=== PATIENT | male | born 1970 | race Caucasian/White ===

== ENCOUNTER → 2017-11-10 | Outpatient (CLI) | payer BC ==
--- NOTE | 2017-11-10 10:44 | XR ---
EXAMINATION TYPE: XR chest 2V DATE OF EXAM: 11/10/2017 COMPARISON: NONE INDICATION: Chest pain right lower rib pain TECHNIQUE: Frontal and lateral views of the chest are obtained. FINDINGS: The heart size is normal. The pulmonary vasculature is normal. The lungs are clear. No pneumothorax is evident. IMPRESSION: 1. No acute pulmonary process.
--- NOTE | 2017-11-10 10:46 | XR ---
EXAMINATION TYPE: XR ribs RT DATE OF EXAM: 11/10/2017 COMPARISON: NONE HISTORY: Pleural dyspnea right lower rib pain felt pop this morning TECHNIQUE: Right ribs are examined in 2 projections. FINDINGS: There is a very subtle nondisplaced fracture of the anterior right eighth rib end. No pneum othorax is evident. No pneumoperitoneum is evident. No additional fractures are evident. IMPRESSION: 1. Nondisplaced anterior right eighth rib fracture
== END | disposition home or self-care (01) ==
LOC: RADXRMAIN 10:09
PROVIDERS: ATTEND Internal Medicine
DX: S22.31XA Fracture of one rib, right side, initial encounter for closed fracture (principal); R07.89 Other chest pain
CPT/HCPCS: 71046

== ENCOUNTER 2020-01-07 19:46 | Emergency (ER) | payer BC, MEDICAID ==
[2020-01-07 19:53] VITALS: BP 125/89; PULSE 79; RESP 20; TEMP 98
[2020-01-07 20:21] LABS: Basophils % (A) 1 %; Eosinophils # (A) 0.2 k/uL (0-0.7); Eosinophils % (A) 4 %; HCT 43.4 % (39.0-53.0); HGB 15.3 gm/dL (13.0-17.5); Lymphocytes % (A) 28 %; MCH 29.6 pg (25.0-35.0); MCHC 35.4 g/dL (31.0-37.0); MCV 83.6 fL (80.0-100.0); Mean Platelet Volume 7.5; Monocytes # (A) 0.3 k/uL (0-1.0); Monocytes % (A) 5 %; Neutrophils # (A) 4.3 k/uL (1.3-7.7); Neutrophils % (A) 61 %; Platelet Count 267 k/uL (150-450); RBC 5.19 m/uL (4.30-5.90); RDW 12.6 % (11.5-15.5)
[2020-01-07] MEDS ORDERED: MAG HYDROX/AL HYDROX/SIMETH 30 ML, HYOSCYAMINE ELIXIR 10 ML, LIDOCAINE VISCOUS 2% 10 ML PO STA ×3 (20:23)
--- NOTE | 2020-01-07 20:28 | ED ---
General Adult HPI - General Chief complaint: Chest Pain Stated complaint: Chest Pain Time Seen by Provider: 01/07/20 20:00 Source: patient Mode of arrival: ambulatory Limitations: no limitations - History of Present Illness Initial comments: Dictation was produced using [employer] dictation software. please excuse any grammatical, word or spelling errors. This patient was cared for during a federal and state declared state of emergency secondary to Covid 19 Chief Complaint: 49-year-old old male presents with chest pain. History of Present Illness: 49-year-old male he has no past medical history. He states he has chest pain that spent on and off for the last 2 days. He also complains of mild headache. Patient states his symptoms have been ongoing for the last 2 days. States that there is no exacerbating or mitigating factors. States that the pain is sharp initially and now it is currently dull. No radiation to the back. Patient presents with pain was initially severe however is a lot more relenting today. Patient denies any medical history of himself. He states that his parents have coronary artery disease. Patient denies any radiation to the shoulders or jaw. No associated diaphoresis. Not worse with lying flat. The ROS documented in this emergency department record has been reviewed and confirmed by me. Those systems with pertinent positive or negative responses have been documented in the HPI. All other systems are other negative and/or noncontributory. PHYSICAL EXAM: General Impression: Alert and oriented x3, not in acute distress HEENT: Normocephalic atraumatic, extra-ocular movements intact, pupils equal and reactive to light bilaterally, mucous membranes moist. Cardiovascular: Heart regular rate and rhythm, S1&S2 audible, no murmurs, rubs or gallops Chest: Able to complete full sentences, no retractions, no tachypnea Abdomen: Bowel sounds present, abdomen soft, non-tender, non-distended, no organomegaly Musculoskeletal: Pulses present and equal in all extremities, no peripheral chidi ma Motor: no focal deficits noted Neurological: CN II-XII grossly intact, no focal motor or sensory deficits noted Skin: Intact with no visualized rashes Psych: Normal affect and mood ED course: 49-year-old male presents with chief complaint of chest pain. All signs upon arrival are within acceptable limits. Patient's symptoms are atypical with typical features. Laboratory evaluation obtained. CBC and a marble. Metabolic panel is negative. Troponins negative. Prematurity peptide is negative. D-dimer is 0.95. Chest x-ray shows no acute processes. CT angios shows no acute processes. No pulmonary embolus elevated d-dimer. Discussed with patient that complete workup with include to use sets of troponins by at least 3 hours. Patient states he does not want to wait. He understands that he has not had a complete workup for his chest pain. He lives nearby and can return to the emergency department if he starts to experience more symptoms. Patient given an aspirin. Patient will be discharged. Patient advised to follow-up with his primary care physician. He is told to return to the [facility] department if he has any recurrence of symptoms. Patient understandable agreeable with disposition. EKG interpretation: Ventricular rate 75, normal sinus rhythm,. Interval 150, QRS 106, QTC 426. No MN prolongation, no QTC prolongation, no ST or T-wave changes noted. No old EKG for comparison. Overall, this EKG is unremarkable - Related Data Home Medications Medication Instructions Recorded Confirmed No Known Home Medications 01/07/20 01/07/20 Allergies Allergy/AdvReac Type Severity Reaction Status Date / Time No Known Allergies Allergy Verified 01/07/20 21:36 Review of Systems ROS Statement: Those systems with pertinent positive or pertinent negative responses have been documented in the HPI. ROS Other: All systems not noted in ROS Statement are negative. Past Medical History Past Medical History: No Reported History History of Any Multi-Drug Resistant Organisms: None Reported Past Surgical History: Orthopedic Surgery Additional Past Surgical History / Comment(s): lt knee Past Psychological History: No Psychological Hx Reported Smoking Status: Never smoker Past Alcohol Use History: None Reported Past Drug Use History: Marijuana General Exam Limitations: no limitations Course Vital Signs 01/07/20 19:50 Temperature 98.0 F Pulse Rate 79 Respiratory 20 Rate Blood Pressure 125/89 O2 Sat by Pulse 99 Oximetry Medical Decision Making - Lab Data Result diagrams: 01/07/20 20:08 01/07/20 20:08 Lab Results 01/07/20 01/07/20 01/07/20 Range/Units 20:08 20:08 20:08 WBC 7.0 (3.8-10.6) k/uL RBC 5.19 (4.30-5.90) m/uL Hgb 15.3 (13.0-17.5) gm/dL Hct 43.4 (39.0-53.0) % MCV 83.6 (80.0-100.0) fL MCH 29.6 (25.0-35.0) pg MCHC 35.4 (31.0-37.0) g/dL RDW 12.6 (11.5-15.5) % Plt Count 267 (150-450) k/uL Neutrophils % 61 % Lymphocytes % 28 % Monocytes % 5 % Eosinophils % 4 % Basophils % 1 % Neutrophils # 4.3 (1.3-7.7) k/uL Lymphocytes # 2.0 (1.0-4.8) k/uL Monocytes # 0.3 (0-1.0) k/uL Eosinophils # 0.2 (0-0.7) k/uL Basophils # 0.0 (0-0.2) k/uL D-Dimer (<0.60) mg/L FEU Sodium 139 (137-145) mmol/L Potassium 3.5 (3.5-5.1) mmol/L Chloride 107 (98-107) mmol/L Carbon Dioxide 24 (22-30) mmol/L Anion Gap 8 mmol/L BUN 16 (9-20) mg/dL Creatinine 1.14 (0.66-1.25) mg/dL Est GFR (CKD-EPI)AfAm 86 (>60 ml/min/1.73 sqM) Est GFR (CKD-EPI)NonAf 75 (>60 ml/min/1.73 sqM) Glucose 119 H (74-99) mg/dL Calcium 9.5 (8.4-10.2) mg/dL Troponin I <0.012 (0.000-0.034) ng/mL NT-Pro-B Natriuret Pep pg/mL 01/07/20 01/07/20 Range/Units 20:08 20:08 WBC (3.8-10.6) k/uL RBC (4.30-5.90) m/uL Hgb (13.0-17.5) gm/dL Hct (39.0-53.0) % MCV (80.0-100.0) fL MCH (25.0-35.0) pg MCHC (31.0-37.0) g/dL RDW (11.5-15.5) % Plt Count (150-450) k/uL Neutrophils % % Lymphocytes % % Monocytes % % Eosinophils % % Basophils % % Neutrophils # (1.3-7.7) k/uL Lymphocytes # (1.0-4.8) k/uL Monocytes # (0-1.0) k/uL Eosinophils # (0-0.7) k/uL Basophils # (0-0.2) k/uL D-Dimer 0.95 H (<0.60) mg/L FEU Sodium (137-145) mmol/L Potassium (3.5-5.1) mmol/L Chloride (98-107) mmol/L Carbon Dioxide (22-30) mmol/L Anion Gap mmol/L BUN (9-20) mg/dL Creatinine (0.66-1.25) mg/dL Est GFR (CKD-EPI)AfAm (>60 ml/min/1.73 sqM) Est GFR (CKD-EPI)NonAf (>60 ml/min/1.73 sqM) Glucose (74-99) mg/dL Calcium (8.4-10.2) mg/dL Troponin I (0.000-0.034) ng/mL NT-Pro-B Natriuret Pep 35 pg/mL Disposition Clinical Impression: Chest pain Disposition: HOME SELF-CARE Condition: Good Instructions (If sedation given, give patient instructions): Chest Pain (ED) Is patient prescribed a controlled substance at d/c from ED?: No Referrals: Ruby Turner MD [Primary Care Provider] - 1-2 days Time of Disposition: 21:42
[2020-01-07 20:37] LABS: Calcium 9.5 mg/dL (8.4-10.2); Potassium 3.5 mmol/L (3.5-5.1)
--- NOTE | 2020-01-07 20:39 | XR ---
EXAMINATION TYPE: XR chest 1V portable DATE OF EXAM: 01/07/2020 COMPARISON: Chest x-ray November 10, 2017 HISTORY: Chest pain. TECHNIQUE: Single frontal view of the chest is obtained. FINDINGS: There is chronic parenchymal change without suspicious new focal air space opacity, pleura l effusion, or pneumothorax seen. The cardiac silhouette size remains within normal limits. Degenera tive change both shoulders redemonstrated. Overlying EKG leads are seen. IMPRESSION: Chronic changes without acute pulmonary process.
--- NOTE | 2020-01-07 21:15 | CT ---
EXAMINATION TYPE: CT angio chest DATE OF EXAM: 01/07/2020 COMPARISON: Chest x-ray earlier today. HISTORY: SOB, CHEST PAIN, ELEVATED D-DIMER CT DLP: 588.4 mGycm. Automated Exposure Control for Dose Reduction was Utilized. CONTRAST: CTA scan of the thorax is performed with IV Contrast, patient injected with 100 mL of Isovue 300, pul monary embolism protocol. MIP Images are created on CT scanner and reviewed. FINDINGS: LUNGS: Slightly suboptimal as there is respiratory motion artifact aggravation limiting evaluation fo r subcentimeter nodules. Lungs are grossly clear. Note is made of a 5 mm left basilar nodule axial im age 89. Appropriate follow-up advised as per Fleischner Society recommendations. No pleural effusion or pneumothorax. Mild patchy linear scarring and/or atelectasis left lung base. MEDIASTINUM: There is satisfactory enhancement of the pulmonary artery and its branches, there is no CT evidence for pulmonary embolism. There are no greater than 1 cm mediastinal lymph nodes. Slightly prominent left hilar lymph nodes. No cardiomegaly or pericardial effusion is seen. Incidental [employer] enhancement of the thoracic aorta without greater than 4.0 cm aneurysm or dissection. OTHER: Straightening of spine with moderate multilevel anterior spurring mid thoracic levels. IMPRESSION: No CT evidence for acute pulmonary embolism. No suspicious acute pulmonary process.
[2020-01-07] MEDS ORDERED: ASPIRIN 81 MG PO STA (21:41)
== END 2020-01-07 22:12 | disposition home or self-care (01) ==
LOC: SUPCPDRO 19:46 → EC 19:46
DX: R07.9 Chest pain, unspecified (principal); R51 Headache; Z82.49 Family history of ischemic heart disease and other diseases of the circulatory system
CPT/HCPCS: 36415; 93005; 85379; 83880; 80048; 84484; 85025; 71045; 71275; 99285; Q9967

== ENCOUNTER → 2020-03-31 | Outpatient (CLI) | payer MEDICAID ==
--- NOTE | 2020-03-31 13:11 | MR ---
EXAMINATION TYPE: MR cervical spine wo con DATE OF EXAM: 03/31/2020 COMPARISON: None HISTORY: 49-year-old male M54.2, Cervicalgia TECHNIQUE: Multiplanar, multisequence images of the cervical spine were acquired. FINDINGS: The craniocervical junction abnormality, predental space widening, or prevertebral soft tissue swelli ng. Some degenerative changes are present at the C1 dens articulation. There is slight dextroconvex curvature of the cervical spine with accelerated degenerative disc disea se towards the left particularly at C3-C4 with fatty Modic type II endplate changes. Additional scattered Modic type II fatty endplate change particularly at C5-C6 and C6-C7. Facet and uncovertebral joint arthropathy throughout. Degenerative grade 1 anterolisthesis at C4-C5. Moderate degenerative disc disease C5-C7 levels with desiccated discs. Disc space narrowing is presen t. Disc osteophyte complex formation at various levels. At C2-C3, minimal bulging disc. Bilateral facet arthropathy. Mild left neuroforaminal narrowing. No s lyssa canal stenosis. At C3-C4, minimal posterior disc bulge. Hypertrophic facet and uncovertebral joint arthropathy on the left with severe left neuroforaminal stenosis. No spinal canal stenosis. At C4-C5, hypertrophic facet and uncovertebral joint arthropathy. Moderate right and mild left neurof oraminal stenosis. Grade 1 anterolisthesis. No spinal canal stenosis. At C5-C6, hypertrophic facet and uncovertebral joint arthropathy, left greater than right. Moderate t o severe left and moderate right neuroforaminal stenosis. There is some ventral impression on the the mary jane sac without significant spinal canal stenosis. At C6-C7, broad-based discussed by complex with uncovertebral joint and facet arthropathy. Moderate l eft and mild right neuroforaminal narrowing. No spinal canal stenosis. At C7-T1, hypertrophic facet arthropathy. Uncovertebral joint arthropathy on the left. Mild bilateral neuroforaminal narrowing. There is ventral impression on the thecal sac without significant spinal c anal stenosis. Normal course, caliber, and signal intensity of the cervical spinal cord. No prevertebral or paravertebral soft tissue abnormality. IMPRESSION: 1. Moderate degenerative disc disease. Scattered fatty Modic type II endplate change. 2. Hypertrophic facet and uncovertebral joint arthropathy throughout. Degenerative grade 1 anterolist hesis at C4-C5. There is also slight dextroconvex curvature of the cervical spine that could reflect a slight underlying scoliosis. Clinically correlate. 3. Small disc osteophyte complexes impress on the ventral thecal sac at multiple levels but do not co ntribute to any significant spinal canal stenosis. 4. Variable neural foraminal stenoses, severe on the left at C3-C4, moderate to severe on the left a t C5-C6, and moderate on the left at C6-C7. Level by level changes as above.
== END | disposition home or self-care (01) ==
LOC: RADMRIMAIN 11:32
PROVIDERS: ATTEND Physical Medicine & Rehabilitation
DX: M50.31 Other cervical disc degeneration, high cervical region (principal); M48.02 Spinal stenosis, cervical region; M25.78 Osteophyte, vertebrae; M47.812 Spondylosis without myelopathy or radiculopathy, cervical region; I10 Essential (primary) hypertension
CPT/HCPCS: 72141

== ENCOUNTER → 2020-08-20 | Outpatient (CLI) | payer MEDICAID | END | disposition home or self-care (01) | LOC: LABWHC1 15:20 | PROVIDERS: ATTEND Family Medicine | DX: R05 Cough (principal); R11.10 Vomiting, unspecified; R51.9 Headache, unspecified | CPT/HCPCS: U0003; C9803 ==

== ENCOUNTER → 2020-09-09 | Outpatient (CLI) | payer MEDICAID ==
--- NOTE | 2020-09-09 16:18 | CT ---
EXAMINATION TYPE: CT cervical spine wo con DATE OF EXAM: 09/09/2020 COMPARISON: Outside cervical spine x-ray September 01, 2020. MRI cervical spine March 31, 2020. HISTORY: Neck pain x1 year. CT DLP: 618.9 mGycm Automated exposure control for dose reduction was used. TECHNIQUE: CT scan of the cervical spine is obtained without contrast, axial images are obtained, sa gittal and coronal reformatted images are also reviewed. FINDINGS: Cervical spine is redemonstrated in its entirety from C1 through upper thoracic levels, per sistent dextroconvex scoliosis on coronal images centered mid cervical spine with reactive levoconvex scoliosis centered upper thoracic spine without evidence of acute fracture or dislocation. Sagittal images redemonstrate slight grade 1 retrolisthesis C3 on C4 and grade 1 anterolisthesis of C4 on C5. Prevertebral soft tissue appears within normal limits. The C1-C2 articulation remains within normal limits on the coronal images. Vertebral body heights are maintained. Moderate disc space narrowing C 6-C7 level remains present. Mild disc space narrowing with moderate anterior spurring C5-C6 level. Sp inal canal grossly preserved. No new large disc herniations are present. Axial images show left-sided uncovertebral facet degenerative changes C3-C4 level contributing to mo derate left-sided neural foraminal narrowing and bilateral uncovertebral facet degenerative changes C 4-C5 level along with 2 greater degree C5-C6 level causing [id number] bilateral neural foramina l narrowing. Lung apices show no pneumothorax. IMPRESSION: As above. No significant change from recent MRI study.
== END | disposition home or self-care (01) ==
LOC: RADCTMAIN 15:50
PROVIDERS: ATTEND Orthopaedic Surgery
DX: M48.02 Spinal stenosis, cervical region (principal); M50.20 Other cervical disc displacement, unspecified cervical region; M43.12 Spondylolisthesis, cervical region; M47.812 Spondylosis without myelopathy or radiculopathy, cervical region
CPT/HCPCS: 72125

== ENCOUNTER → 2020-10-29 | Outpatient (CLI) | payer MEDICAID | END | disposition home or self-care (01) | LOC: LABWHC1 11:03 | PROVIDERS: ATTEND Orthopaedic Surgery | DX: Z01.812 Encounter for preprocedural laboratory examination (principal); M47.812 Spondylosis without myelopathy or radiculopathy, cervical region; Z22.322 Carrier or suspected carrier of Methicillin resistant Staphylococcus aureus | CPT/HCPCS: 87070 ==

== ENCOUNTER 2020-11-04 05:41 | Inpatient (IN) | payer MEDICAID ==
[2020-10-28 14:58] VITALS: BMI 26.3
--- NOTE | 2020-10-29 12:06 | P.HPOR ---
History of Present Illness H&P Date: 10/29/20 Chief Complaint: Neck pain, Arm pain, radiculopathy Patient presents with neck pain. He notes pain for years. He has left sided pain that is more symptomatic than his right side. He had previous injections and ablations ( 6months ago) without relief. He currently does physical therapy without relief. He notes radiating pain down his back and between his shoulder blades. Patient notes limited range of motion and pain at night time. Patient ambulates independently . He does not take pain medications. He tried meloxicam without relief. he previously was seen by Dr. Feng who stated similarly that the patient needs either a large anterior fusion or an anterior posterior cervical fusion but he is very young. Patient returns for a follow up of his cervical spine CT scan results. Patient notes left sided pain has increased and radiates between his shoulder blades. Patient notes night time symptoms. He has limited range of motion. Patient states that he is unable to do normal activity such as watching television without significant pain. He does not take pain medications. Review of Systems 14 points review of systems completed and as stated in HPI, all other systems reviewed are negative. Past Medical History Past Medical History: Osteoarthritis (OA) Additional Past Medical History / Comment(s): DDD History of Any Multi-Drug Resistant Organisms: None Reported Past Surgical History: Orthopedic Surgery Additional Past Surgical History / Comment(s): lt knee. colonoscopy Past Anesthesia/Blood Transfusion Reactions: Postoperative Nausea & Vomiting (PONV) Smoking Status: Never smoker - Past Family History Mother Family Medical History: No Reported History Medications and Allergies Home Medications Medication Instructions Recorded Confirmed Type No Known Home Medications 01/07/20 10/28/20 History Allergies Allergy/AdvReac Type Severity Reaction Status Date / Time No Known Allergies Allergy Verified 10/28/20 14:45 Physical Examination Osteopathic Statement: *. No significant issues noted on an osteopathic structural exam other than those noted in the History and Physical/Consult. PHYSICAL EXAMINATION: Vitals: Stable General: Awake, alert, appropriate for age, in no acute distress. HEENT: No unusual neck masses around region of lateral neck triangle, thyroid, supraclavicular groove. Heart: Regular rate and rhythm, normal S1, S2 and no murmur/gallop. Lungs: Clear to auscultation bilaterally with no use of accessory muscles. Extremities: Skin warm and dry without no acute lesions, coloration, temperature, skin intact, no tenderness or erythema. Integument: Hairy patches: Absent Dorsal skin dimples: Absent Cafe au lait spots: Absent Surgical incisions: None Palpation: Please see Pain drawing on Intake sheet for further detail. (Tenderness = T, Nontender = NT, Swelling = S, Ecchymosis = E) Findings on Midline and paraspinal palpation and percussion: Cervical: Tennis to palpation posteriorly midline as well as paraspinal within the cervical spine Thoracic: NT Lumbar: NT Sacral: NT Special findings: Done POSTURAL and MUSCULO-SKELETAL EVALUATION: Coronal Balance: Neutral Recumbent testing: Patient can lay flat on back Sagittal Balance: Neutral Shoulder Profile: Level Pelvic Girdle: Level Neck ROM: Unrestricted in six directions Lumbar ROM: Unrestricted in six directions Shoulder ROM: Symmetric in abduction, ER/IR Hip ROM: Symmetric in abduction, adduction, ER/IR Knee ROM: Symmetric and intact in Flexion / extension Hands: Normal appearing structure L and R Feet: Normal appearing structure L and R VASCULAR STATUS : Wrist Pulses: 2/4 bilateral radial and ulnar Pedal Pulses: 2/4 bilateral DP and PT Color: Normal Edema: None NEUROLOGIC EXAMINATION: Mental Status: Awake and alert, fully oriented, with normal attention, concentration and memory, and fluent, appropriate speech. Cranial Nerves: I: Olfactory not tested. II: Visual acuity normal, no visual field deficit noted with confrontation. III,IV: Normal pupillary reflexes & intact extraocular movements without nystagmus. V,: Intact symmetrical facial sensation. VII: Intact symmetrical facial motor movement VIII: Hearing intact. IX,X: Intact gag, swallow, & normal voice. XI: Sternocleidomastoid, trapezius function intact. XII: Tongue midline with normal movements. Special Tests: L'hermitte's Sign: Absent Spurling'Sign: Absent Bilateral Cubital percussion test: Absent Bilateral Reuben-Tinel sign - Carpal region: Absent Bilateral Straight Leg Raising: Absent Bilateral Motor Exam (0-5/5, N/T) STRENGTH UPPER EXTREMITY Shoulder Abd (Not part of ODILIA Motor score): RIGHT 5 LEFT 5 Elbow Flexors: RIGHT 5 LEFT 5 Elbow Extensor: RIGHT 5 LEFT 5 Wrrist Dorsiflexors: RIGHT 5 LEFT 5 Finger Abductor: RIGHT 5 LEFT 5 Surveillance Manager: RIGHT 5 LEFT 5 LOWER EXTREMITY Hip Flexor (Not part of ODILIA Motor Score): RIGHT 5 LEFT 5 Knee Flexor: RIGHT 5 LEFT 5 Knee Extensor: RIGHT 5 LEFT 5 Ankle Dorsiflexion: RIGHT 5 LEFT 5 Ankle Plantarflexion: RIGHT 5 LEFT 5 EHL: RIGHT 5 LEFT 5 FHL: RIGHT 5 LEFT 5 ODILIA Motor Score: RIGHT 50/50 LEFT 50/50 REFLEXES Biecp: RIGHT 2 LEFT 2 Tricep: RIGHT 2 LEFT 2 Brachioradialis: RIGHT 2 LEFT 2 Patellar: RIGHT 2 LEFT 2 Achilles: RIGHT 2 LEFT 2 Pathological Reflexes Araiza's: RIGHT Absent LEFT Absent Babinski: RIGHT Absent LEFT Absent Clonus: RIGHT None LEFT None SENSORY Joint Position: Intact bilaterally Vibration Intact bilaterally Pain and LT sense Intact C5-T1 and L2-S1 Dermatomal deficit None Gait and Functional Evaluation: Ambulatory aids: Independent walker Romberg's test: Intact bilaterally. Toe walk/ heel walk / heel-toe walk intact while maintaining satisfactory balance. Squatting and straightening out without assistance to a minimum of 60 degrees knee flexion Single leg stance: Intact/ Trendelenburg sign negative bilaterally Hand and finger dexterity intact bilaterally. Disdiadochokinesis examination negative bilaterally. Results AP lateral flexion extension radiographs of the cervical spine obtained and reviewed these films demonstrate any fracture dislocation overall alignment is fairly well maintained there is slight kyphotic collapse at the C5 6 level and the C4 5 level. There is foraminal stenosis noted at the C3 to C5 levels. There is a grade 1 anterolisthesis of C4 on C5 with flexion which does reduce on extension. There is spondylosis throughout the cervical spine. There is facet arthrosis as well. Foraminal views failed to demonstrate any other areas of lesion. There is no bony lesions noted. MRI of the cervical spine is reviewed from an outside source. This demonstrates C4 5 grade 1 spondylolisthesis C3 to C4 foraminal stenosis on the left. There is spondylosis throughout. There are no fractures or dislocations noted. CT scan shows cervical spondylosis C3-7 with Grade I spondylolisthesis of C4-5. There is stenosis related as well as foraminal stenosis. There are large anterior osteophytes noted. There are no fractures noted. Assessment and Plan Assessment: 1. Severe cervical spondylosis 2. Grade 1 C4-C5 anterior spondylolisthesis Plan: Spine Surgery Risk Review Fantasma Borges is a 50-year-old male presenting for evaluation of severe cervical neck pain as well as bilateral upper extremity radiculopathy. It was my pleasure to have seen and examined Fantasma Borges. In our visit today we have had a chance to go over subjective complaints, physical examination findings and treatments including the natural course history without intervention and various interventional options. The patients imaging demonstrates severe cervical spondylosis with a grade 1 anterolisthesis of C4 on C5 with foraminal and central stenosis related.. On physical exam, Fantasma Borges demonstrates bilateral upper extremity radiculopathy, severe cervical neck pain and limited range of motion. I have explained to the patient that as their condition progresses it will cause further neurological deficits and eventual paralysis. Based on the patients imaging, physical exam, and the rapid progression and disabling nature of their symptoms, at this time I recommend surgery in the form or a: cervical 3 to cervical 7 ACDF. I discussed the risk and benefits of this procedure at length with Fantasma Borges. The patient agreed to considered pursuing the procedure abovementioned. Prior to surgery, she should follow up with her PCP (Cardio, ID, IM etc) for clearance. Questions were invited and answered, and the patient wishes to proceed as outlined below. Currently, I am recommendin.cervical 3 to cervical 7 anterior cervical discectomy and fusion with possible posterior cervical 2 to thoracic to decompression and fusion 2.Follow up with PCP for surgical clearance 3.Review of surgical risks and benefits as well as an educational packet on the proposed surgical procedure. Risks: All surgical procedures come with inherent risks, including those related to positioning, anesthesia, intraoperative findings, and postoperative complications. It is important to understand that surgery does not come with any guarantee of a successful outcome as complications and adverse events are always possible. The patient was given a handout in office today discussing the surgical procedure and risks associated with the intervention, both of which were discussed with the patient. These risks include but are not limited to the following: * Experiencing same, different or even worse symptoms in back, neck, arms, or legs compared to before surgery. Requiring further surgery or other forms of treatment presently or at some time in the future at same or other levels of the intended spine surgery. On an extreme but fortunately relatively rare basis severe complication such as blindness, stroke, heart attack, temporary and/or permanent nerve injury, paralysis, coma, or may occur, sometimes without known explanation. Surgical complications may include but are not limited to risk of infec tion, fluid accumulation in the surgical dissection site, including a seroma or hematoma, that requires additional surgery, wound drainage, bleeding, new numbness or weakness, vision changes/loss, spinal fluid leakage, non-healing and/or infected incision, headaches, difficulty or inability to swallow, hoarseness, hemopneumothorax, pneumothorax, impotence, retrograde ejaculation, vaginal dryness; injury to nerves, spinal cord, blood vessels, lymphatics or other vital organs (i.e., bowel injury, injury to the great vessels); heterotopic bone formation; complications related to the hardware such as screws, rods, cages including misplaced hardware, device failure, instrumentation at the wrong spine level, hardware fracture/breakage, or hardware loosening; vertebral failure of the spinal column above or below the newly placed hardware; retained surgical instrumentations or devices and the need for further surgery. * Medical risks of the planned spine surgery include but are not limited to generalized Infections to the whole body or local areas outside of the surgical site (sepsis), heart attack, bleeding, anaphylaxis, meningitis, seizure, epilepsy, hearing loss, burn alejandro, laceration of the head or other areas of the body, bruising, hypersensitivity of the skin, bladder over distension; allergic reaction; shoulder injury related to positioning; fat, blood and air clots to other areas of the body like heart, lungs, brain; failure of internal organs such as lungs, kidneys, liver and excessive bleeding. If blood transfusions are necessary, note that transfusions may cause intolerance reactions such as anaphylaxis or other complex reactions. Despite best efforts, the results of spine surgery might not heal in terms of bone, soft tissues such as skin, fascia, ligaments, and joints. Additionally, in order to achieve best possible results, spine surgery may be carried out beyond the initially planned levels and involve decompression, fusion including insertion of hardware at levels other than the original intended area of surgical interest change some portions of the procedure in order to ensure the best possible outcomes. With spine surgery and spinal fusion, there are different off label uses of instrumentation (devices, implants and hardware) as well as biological substances (bone morphogenic proteins, demineralized bone matrix) as well as using extra bone from allograft sources (i.e. cadaver bone) or autograft (iliac crest bone, ribs, or the spine itself). The patient has been given information about these practices and their inherent risks and benefits. [facility] is an educational center that serves as a training facility for neurosurgical and orthopedic spine residents and fellows. Residents are physicians who are completing their surgical intensive training following medical school. They assist in the operating room with direct supervision of the attending surgeons. [place] are surgeons who have completed their training and eligible for board certification. They have opted for an elective year of more specialized training in their field. They assist in the operating room under the supervision of the attending surgeons. Physician assistants are medically trained surgical providers who function in the outpatient, inpatient, and operating room setting under the direct supervision of the attending surgeon. [facility] has multiple operating rooms with single and overlapping rooms running daily. They currently function under the required guidelines as produced by the [facility] [employer] Committee with regards to the overlapping rooms and will continue to comply with changes to this policy as they occur. The requirements include and are complied with as follows: (1) the critical portions of the overlapping rooms will not occur at the same time, (2) the attending physician will be physically present during the critical portions of the procedure and immediately available during the entire case, and (3) a back-up attending is designated should the primary attending not be immediately available. The patient has had a chance to review all the listed information, has been given print outs detailing this information, and has had all his/her questions answered to their satisfaction. It was my pleasure to have seen and examinedFantasma Borges. In our visit today we have had a chance to go over my understanding of our patient's current condition, the natural course history without intervention and various interventional options. Questions were invited and answered, and the patient wishes to proceed as outlined above. I have seen and examined the patient for 25 minutes and we have spent more than 50% of the time in repeat and detailed counseling about the patient's condition, its natural course history with out and as much as can be predicted with surgery and re-review of various surgical treatment options. In conclusion, Fantasma Borges and requested we proceed with the above suggested surgery and are willing to accept risks and limitations of the suggested surgery as nature of the disease process and our best attempts at treatment for the condition. Thank you again for allowing us to be part of your patient's care. Please don't hesitate to contact me if you have any further questions. Signed and authenticated by: [facility] [address] [place] [address]
[~2020-11-04 05:41] MED LIST: ACETAMINOPHEN TAB 500 MG TAB PO PRN; DEXAMETHASONE SOD PHOSPHATE 4 MG/ML 1 ML VIAL IV ONE; GABAPENTIN 300 MG CAP PO PRN; ONDANSETRON 4 MG/2 ML VIAL IVP ONE; ONDANSETRON 4 MG/2 ML VIAL IVP PRN; TRANEXAMIC ACID 1,000 MG in SODIUM CHLORIDE 0.9% 100 ML IVPB PRN
[2020-11-04] MEDS ORDERED: LIDOCAINE 1% (10MG/ML) FOR IV START INTRADERMA ONE (06:30)
[2020-11-04] MEDS: LACTATED RINGERS 1,000 ML IV SCH (06:30)
[2020-11-04] MEDS ORDERED: HYDROmorphone 0.5 MG/0.5 ML SYRINGE IVP PRN (07:00)
[2020-11-04] MEDS ORDERED: LIDOCAINE 1% INJ 10MG/ML (20 ML MDV) ONE (07:25)
[2020-11-04] MEDS ORDERED: KETAMINE 10 MG/ML 20 ML VIAL ONE (07:25)
[2020-11-04] MEDS ORDERED: WATER FOR INJECTION, STERILE 10 ML VIAL IV ONE (07:25)
[2020-11-04] MEDS ORDERED: fentaNYL (PF) 50 MCG/ML 2 ML AMP ONE (07:25)
[2020-11-04] MEDS ORDERED: ePHEDrine SULFATE/0.9% NACL/PF 50 MG/5 ML SYRINGE IV ONE (07:25)
[2020-11-04] MEDS ORDERED: MIDAZOLAM 2 MG/2 ML VIAL ONE (07:25)
[2020-11-04] MEDS ORDERED: SUCCINYLCHOLINE CHLORIDE 100 MG/5 ML SYR IV ONE (07:25)
[2020-11-04] MEDS ORDERED: PROPOFOL 10 MG/ML 20 ML VIAL IV ONE ×2 (07:25)
[2020-11-04] MEDS ORDERED: THROMBIN (BOVINE) 5,000 UNIT VIAL TOPICAL ONE (08:00)
[2020-11-04] MEDS ORDERED: BUPIVACAINE (PF) 0.5% 30 ML VIAL SQ ONE ×3 (08:32→09:22)
[2020-11-04] MEDS ORDERED: LACTATED RINGERS 1,000 ML IV ONE (08:51)
[2020-11-04] MEDS ORDERED: GELATIN SPONGE,ABSORB (LARGE) 1 EACH SPONGE MISCELLANE ONE (09:22)
[2020-11-04] MEDS ORDERED: VANCOMYCIN 1,000 MG VIAL MISCELLANE ONE (11:04)
[2020-11-04] MEDS ORDERED: HYDROcodone/APAP 5-325MG 1 EACH TAB PO PRN (11:56)
[2020-11-04] MEDS ORDERED: CYCLOBENZAPRINE 10 MG TAB PO PRN (11:58)
[2020-11-04] MEDS ORDERED: ONDANSETRON 4 MG/2 ML VIAL IVP PRN (11:58)
[2020-11-04] MEDS ORDERED: DEXAMETHASONE SOD PHOSPHATE 4 MG/ML 1 ML VIAL IV PRN (11:58)
--- NOTE | 2020-11-04 11:58 | XR ---
Fluoroscopy INDICATION: Pain cervical fusion FINDINGS: Fluoroscopy time: 1 minute 32 seconds. Images obtained: 2. IMPRESSIONS: 1. Documentation of fluoroscopy.
--- NOTE | 2020-11-04 15:03 | P.CONS ---
History of Present Illness - Reason for Consult Consult date: 11/04/20 medical management Requesting physician: Han Sheikh - Chief Complaint neck pain - History of Present Illness Patient is a 50-year-old male with osteoarthritis of the neck who presented for elective cervical discectomy with fusion. He had no immediate postoperative complications. We are consulted for medical management. Patient seen and examined at bedside. He is feeling well. Pain is well controlled. No chest pain, no shortness of breath, no sore throat, no nausea, no vomiting, + mild GUZMÁN No recent cough, cold, fevers, chills Failed conservative management with physical therapy and injections. Review of Systems Pertinent positives and negatives as discussed in HPI, a complete review of systems was performed and all other systems are negative. Past Medical History Past Medical History: Osteoarthritis (OA) Additional Past Medical History / Comment(s): DDD History of Any Multi-Drug Resistant Organisms: None Reported Past Surgical History: Orthopedic Surgery Additional Past Surgical History / Comment(s): lt knee. colonoscopy Past Anesthesia/Blood Transfusion Reactions: Postoperative Nausea & Vomiting (PONV) Smoking Status: Never smoker Past Alcohol Use History: None Reported Past Drug Use History: Marijuana Additional History: no assistive devices at home - Past Family History Mother Family Medical History: No Reported History Medications and Allergies Home Medications Medication Instructions Recorded Confirmed Type No Known Home Medications 01/07/20 10/28/20 History Allergies Allergy/AdvReac Type Severity Reaction Status Date / Time No Known Allergies Allergy Verified 11/04/20 06:22 Physical Exam Osteopathic Statement: *. No significant issues noted on an osteopathic structural exam other than those noted in the History and Physical/Consult. Vitals: Vital Signs Temp Pulse Pulse Resp BP Pulse Ox 11/04/20 13:17 88 16 149/88 92 L 11/04/20 13:02 80 16 162/98 94 L 11/04/20 12:45 88 16 153/80 94 L 11/04/20 12:30 89 18 154/77 100 11/04/20 12:15 96.8 F L 87 16 155/79 99 11/04/20 06:30 99.0 F 69 16 140/89 99 Intake and Output 11/03/20 11/04/20 11/04/20 22:59 06:59 14:59 Intake Total 400 2250 Output Total 305 Balance 400 1945 Intake: IV 400 2250 Output: Urine 230 Estimated Blood Loss 75 Other: Weight 91.8 kg General: non toxic, no distress, appears at stated age Derm: warm, dry Head: atraumatic, normocephalic, symmetric Eyes: EOMI, no lid lag, anicteric sclera, pupils equal round reactive to light ENT: Nose and ears atraumatic, no thrush, no pharyngeal erythema Neck: Soft cervical collar in palce Mouth: no lip lesion, mucus membranes moist, poor dentition Cardiovascular: S1S2 reg, no murmur, positive posterior tibial pulse bilateral, no edema, capillary refill less than 2 seconds Lungs: clear to ascultation bilateral, no ronchi, no rales, no wheeze, no accessory muscle use Abdominal: soft, nontender to palpation, no guarding, no appreciable organomegaly, normal bowel sounds Ext: no gross muscle atrophy, muscle strength muscle strength 5 out of 5 in b/l upper extremities, moving lower extremities independently, no contractures Neuro: CN II-XI grossly intact, light touch intact all 4 extremities, finger to nose within normal limits, Psych: Alert, oriented, appropriate affect Assessment and Plan Assessment: 50-year-old male status post cervical discectomy with fusion Osteoarthritis with degenerative disc disease - pain mgt - pt/ot - ortho spine recs - CBC and BMP in AM Marijuana use - cessation encourage Thank you for allowing us to participate in the care of this pleasant patient. Do not hesitate to contact us with questions. Someone can be reached from the [facility] hospitalist group all hours of the day at [phone] or via perfect serve.
[2020-11-04] MEDS: 0.9% NACL WITH KCL 20 MEQ/L 1,000 ML IV SCH (16:16)
[2020-11-04] MEDS: GABAPENTIN 300 MG CAP PO SCH ×2 (16:16→21:35)
[2020-11-04] MEDS: HYDROmorphone 0.5 MG/0.5 ML SYRINGE IVP PRN (16:24)
[2020-11-04] MEDS: DOCUSATE 100 MG CAP PO SCH (21:35)
--- NOTE | 2020-11-04 22:17 | CT ---
EXAMINATION TYPE: CT cervical spine wo con DATE OF EXAM: 11/04/2020 COMPARISON: 09/09/2020 HISTORY: Post op cervical fusion. CT DLP: 568.3 mGycm Automated exposure control for dose reduction was used. Images were obtained from the skull base to the T2 vertebra with no contrast. There is a plate with screws fusing anteriorly the cervical spine from C4 to C7. There is multilevel disc graft. There is mild cervical multilevel hypertrophic facet arthropathy. Skull base is intact. T here is normal aeration of the mastoid sinuses. Occipital bone is intact. I see no focal bony destruc tive process. There is no sign of any significant cervical spinal stenosis. IMPRESSION: Multilevel anterior fusion surgery. No complicating process seen.
[2020-11-05] MEDS: HYDROmorphone 0.5 MG/0.5 ML SYRINGE IVP PRN ×2 (00:36→07:21)
[2020-11-05] MEDS: 0.9% NACL WITH KCL 20 MEQ/L 1,000 ML IV SCH (02:30)
[2020-11-05 04:50] VITALS: BP 154/84; RESP 18; TEMP 97.7
[2020-11-05] MEDS: LACTATED RINGERS 1,000 ML IV SCH (05:12)
[2020-11-05] MEDS: DOCUSATE 100 MG CAP PO SCH (08:25)
[2020-11-05] MEDS: GABAPENTIN 300 MG CAP PO SCH (08:26)
--- NOTE | 2020-11-05 08:27 | P.PN ---
Subjective Progress Note Date: 11/05/20 Principal diagnosis: Cervical spondylosis Patient seen and examined is doing well this morning he denies any issues. He did have one bout of vomiting after IV pain medications. He denies any fevers chills shortness breath or chest pain denies any new numbness or tingling. Den ies any weakness. States minimal throat pain and is able to swallow and tolerated a by mouth diet. Objective - Vital Signs Vital signs: Vital Signs Temp 97.7 F 11/05/20 04:49 Pulse 86 11/05/20 04:49 Resp 18 11/05/20 04:49 BP 154/84 11/05/20 04:49 Pulse Ox 96 11/05/20 04:49 Intake & Output 11/04/20 11/05/20 11/05/20 18:59 06:59 18:59 Intake Total 2450 1240 Output Total 305 0 Balance 2145 1240 Weight 91.8 kg Intake: IV 2450 Intake, IV Titration 1000 Amount 0.9% NaCl with KCl 20 Meq 900 /l 1,000 ml @ 75 mls/hr IV .[id number] LESIA Rx#: [id number] ceFAZolin 2 gm In Sodium 100 Chloride 0.9% 50 ml @ 100 mls/hr IVPB Q8HR LESIA Rx# :[id number] Oral 240 Output: Drainage 0 0 Anterior Neck 0 0 Urine 230 Estimated Blood Loss 75 Other: # Voids 1 - Exam Patient is alert and oriented 3 appears well-nourished well-hydrated is in no acute distress. They does not appear septic. On exam the patient has no tenderness to palpation of her thoracic or lumbar spine. There is no edema or ballottement sign. They have good strength in her lower extremities with 5 out of 5 dorsiflexion plantar flexion EHL and FHL bilaterally. Upper extremities show 5/5 strength in all major muscle groups. There is FROM that is painless of the b/l UE and LE in all major joints. They are intact to light touch sensation in L2 to S1 nerve distribution. Patient has palpable dorsalis pedis was posterior tibial pulses. Compartments are soft and compressible. Patient shows a negative Homans, Araiza's, negative Babinski's negative clonus bilaterally. negative straight leg raise bilaterally. No tensioning signs.Cranial nerves II through XII are grossly intact. Overall alignment is well-maintained in the sagittal coronal planes. Incision is clean dry and intact no erythema or ecchymosis or edema drain pulled today Assessment and Plan Assessment: 1. Severe cervical spondylosis 2. Grade 1 C4-C5 anterior spondylolisthesis Plan: -Appreciate medicine management. -Pain control: Adequate at this time -Aggressive ambulation protocol. OOB with all meals. OOB or in chair 4-5x daily. -PT/OT -TEDs, SCDs, mechanical ppx. OK for heparin today. Early ambulation is best. -GI ppx. -CT of the cervical spine shows good placement of hardware. -Trend labs. -Dispo: Today with home health care
--- NOTE | 2020-11-05 08:35 | P.DS ---
Providers Date of admission: 11/04/20 05:41 Expected date of discharge: 11/05/20 Attending physician: Han Sheikh DO Consults: 11/04/20 11:56 Consult Physician Routine Consulting Provider: Meliza Saleh Consult Reason/Comments: medical management Do you want consulting provider notified?: Yes Primary care physician: Ruby Turner Hospital Course: Spine Surgery Discharge Summary Note Admission Date: 11/04/2020 Discharge Date: 11/05/2020 Providers: Cierra Sheikh Principal Diagnosis: Cervical spondylosis Procedures: C4 to C7 ACDF Discharge Medications: See list Allergies: NO KNOWN DRUG ALLERGIES Hospital Course: The patient was evaluated preoperatively and found to have the diagnosis of cervical spondylosis severe. They underwent appropriate preoperative care and were willing to undergo the intended procedure. They underwent a successful A4 to C7 ACDF, were recovered appropriately and sent to the floor. While on the floor they worked with physical therapy, occupational therapy and nursing to enhance their recovery experience. Their pain was well controlled through their stay and they were started on appropriate medications, DVT ppx modalities, activity and dietary needs. Daily labs were monitored closely, and transfusions were only used when necessary. Medicine as well as other consulting services have made their input and have helped with our team approach and multidisciplinary care. PT milestones have been met and passed and they have made the recommendation of home with home health care for this patient and treating providers agree with this care path. The patient will be discharged home with appropriate medications, instructions and follow-up information and in stable condition. Patient Condition at Discharge: Good Plan - Discharge Summary Discharge Rx Participant: No New Discharge Prescriptions: New cefaDROXiL [Duricef] 1 gm PO Q12HR #6 tab Cyclobenzaprine [Flexeril] 10 mg PO HS PRN #30 tab PRN Reason: Spasms Gabapentin 300 mg PO BID 3 Days #6 cap HYDROcodone/APAP 5-325MG [F[place]yth 5-325] 1 - 2 tab PO Q6HR PRN #50 tab PRN Reason: Pain Sennosides/Docusate Sodium [Senna Plus 8.6-50 mg Softgel] 1 each PO BID PRN #20 capsule PRN Reason: Constipation Ondansetron Odt [Zofran Odt] 4 mg PO Q8HR PRN #20 tab PRN Reason: Nausea Discharge Medication List Cyclobenzaprine [Flexeril] 10 mg PO HS PRN #30 tab 11/05/20 [Rx] Gabapentin 300 mg PO BID 3 Days #6 cap 11/05/20 [Rx] HYDROcodone/APAP 5-325MG [Forsyth 5-325] 1 - 2 tab PO Q6HR PRN #50 tab 11/05/20 [Rx] Ondansetron Odt [Zofran Odt] 4 mg PO Q8HR PRN #20 tab 11/05/20 [Rx] Sennosides/Docusate Sodium [Senna Plus 8.6-50 mg Softgel] 1 each PO BID PRN #20 capsule 11/05/20 [Rx] cefaDROXiL [Duricef] 1 gm PO Q12HR #6 tab 11/05/20 [Rx] Follow up Appointment(s)/Referral(s): Han Sheikh DO [Doctor of Osteopathic Medicine] - 2 Weeks Ruby Turner MD [Primary Care Provider] - 2 Weeks Activity/Diet/Wound Care/Special Instructions: Spine Discharge and Recovery Instructions Date of Surgery: 11/04/2020 Diagnosis: Cervical spondylosis C4 7 severe Procedure: C4 to C7 ACDF Medications: See list All medication refills should be obtained through your primary care doctor or your clinic spine surgeon. Please discuss prescription refills at your follow up appointment. Do not call the hospital for medication refills. Dressing: Leave your dressing in place for a total of 3 days post operatively. Then you may remove your dressing and leave open to air. Keep the area clean and if not able to keep area clean, then cover with sterile gauze and tape. Showering: You may shower 3 days after your procedure allowing soap and water to run over incision. Do not scrub. Do not soak. Blot dry. Follow up: Please confirm a follow up appointment with your surgeon 2 weeks post operatively. Please make an appointment to follow up with your PCP in 1-2 weeks after surgery for evaluation 3 phase, 3-week plan POST OP WEEKS 1-3 1. Lifting/carrying/pushing/pulling limited to less than 5 pounds. 2. Do not sit for longer than 15 minutes at one time. Get up and walk around. Prolonged sitting is NOT advised. If you lay down, see if you can tolerate laying down on you front (belly side) 3. Walk for periods of 15 minutes = 1 mile but no longer; do it multiple times times each day. 4.Ice your low back after activity. POST OP WEEKS 3-6 1. Lifting limited to less than 20 pounds. 2. Do not sit for longer than 30 minutes at a time. Frequently change positions. Use a sit-to stand workstation or take frequent breaks from sitting if you have returned to work. 3. Walk for 30 minutes each day. If possible, do these three or more times a day POST OP WEEKS 6+ At your 6-week appointment we will give you a physical therapy referral to focus on a core stabilization and strengthening program. You should also work on leg & buttock strengthening, hamstring & quadriceps stretching, and continue a low impact aerobic activity program such as swimming, walking, or riding a stationary bicycle. During the initial 6 weeks after your surgery, you are at the highest risk of re-injuring your spine. You should generally avoid BLTs (bending, lifting and twisting combination motions) and follow the above guidelines to reduce the chance of reinjury. You can anticipate post op appointments in our office at approximately 3 weeks and 6 weeks after your surgery. INCISION CARE: If your incision is not draining you do NOT need to cover it with a dressing. Keep your incision clean, dry and intact. In most cases, we apply skin glue, chance or sutures to the incision at the time of surgery. This will be like a crust or have the appearance of a scab and will fall off in time on its own. The stitches or chance need to be removed at 3 weeks post op appointment. You may begin to shower 3 days after surgery (this allows the glue to bunn well). However, please avoid scrubbing the incision site or peeling off any of the skin glue. This will ensure optimal healing of your incision. Also, during this time avoid soaking the incision area in water - this includes swimming pools, hot tubs or baths. No ointments, lotions or oils on the incision until your surgeon allows. Leave chance, sutures or glue in place. Neurological dysfunction that comes on suddenly can also be a sign of a stroke. Below some common symptoms of a stroke are listed: B - balance difficulty such as sudden onset walking or leaning to one side - NEW E - eye problem such as sudden double vision or trouble seeing on one side - NEW F - Facial weakness or numbness on one side - NEW A - Arm or leg weakness or numbness on one side - NEW S - Slurred speech or difficulty with word finding - NEW T - Time is BRAIN! Call 911 as soon as you recognize these symptoms Diet: Consume a regular diet rich in vegetables and lean protein such as chicken or fish. You should consume in a ratio of approximately 20% fats|40% carbohydrates|40%protein. Vegetables, sweet potatoes, brown rice or quinoa are examples of good carbohydrates. Chips, white bread, cookies and sweets/sugar are examples of bad carbohydrates. Limit your bad carbs, go wild with good carbs. "Life's Simple 7" Guidelines as per [place] [employer] These will help you reclaim your life after surgery and cupola tender helper in your recovery, keeping in mind your restrictions. (1) Get Active. Physical activity can help people lose weight, control high blood pressure and cholesterol, feel emotionally better, and sleep better. (2) Control Cholesterol. Avoid a diet high in saturated fat, trans fat, & cholesterol. Limit whole milk & cream, ice cream, butter, egg yolks, processed meats (like sausage and hot dogs), and fatty meats. Choose healthy foods that are low in saturated fat, trans fat and cholesterol which include: Fruits and vegetables, fiber rich grain products (like whole grain pasta and brown rice), lean meat such as chicken, fish, nuts, seeds, and legumes. (3) Eat Better. Eat small portions. Shop at the grocery with a list and do not stray from it. Tips for a healthy diet include: Limit sodium intake to less than 1500mg daily, avoid prepackaged, processed, and fast foods, choose a diet rich in fruits, vegetables, and whole grain, high fiber foods, and limit saturated & cholesterol in your diet. (4) Manage Blood Pressure. If you have high blood pressure, you should have a cuff at home so that you can check your blood pressure regularly. Be sure you have a good cuff. An arm one is generally better than a wrist one. Bring the cuff to a doctor's appointment to validate that the measurements that your cuff are taking are accurate. Take your blood pressure twice daily when you are sitting down and relaxing. Record the numbers in a log and bring this log with you to your doctors' appointments. (5) Lose Weight if your BMI is above 25. A healthy BMI is between 19-25. To calculate Your BMI, you may use a Standard BMI Calculator on the NIH BMI website: <www.nhlbi.nih.gov/guidelines/obesity/BMI/bmicalc.htm>. Weigh oneself daily. If you are overweight, set a goal to lose weight. A pound a week loss if needed is a good target. (6) Reduce Blood Sugar. Limit foods and liquids with "added sugars." (Added sugars include sucrose, fructose, glucose, maltose, dextrose, high fructose corn syrup, corn syrup, concentrated fruit juice and honey). (7) Stop Smoking. If you smoke, quitting smoking is one of the best things that you can do for your health. Smoking increases your risk of heart attack, stroke, and peripheral vascular disease, which is a build-up of plaque in your arteries. Please discard all the cigarettes and lighters in your house. Have a plan for what you will do when you have the urge to smoke. Direct and second- hand smoke shortens your life as well as the lives of your family, friends and others around you. For your health and the health of those around you, please consider quitting! Proper Bending Body Mechanics: Maintain a wide stance with one foot slightly in front of the other. Keep your back straight. Bend utilizing the strength in your hips and knees. Do not bend at the waist. Maintain the lifted object at your waist-level close to your body. Avoid lifting weight that causes immediately pain or pain anywhere in the body afterwards. Smoking/Nicotine If there was ever one thing that you could do to increase your overall health, decrease your risk of cardiovascular problems by about 39% the second you make the choice, it is to STOP SMOKING. Your body's most instant gratification is the second you stop smoking. We have all heard the studies, read the articles but it is true, smoking is extremely bad for your overall health, and moreover it is detrimental to your bone health. Nicotine, IN ANY FORM, kills bone cells, prevents your body from healing fractures, and significantly prolongs healing after surgery. In spine surgery specifically, it increases your risk of not healing your bones to create a fusion and increases your risk of having a revision surgery due to this up to 60%. I know it is hard. I know it feels impossible. But there are ways. Take control of your life. We are here to help you through it. And when you are ready, ask us and we can direct you to help if you desire. Use the START Plan to Quit Smoking (please visit the Helpguide.org website listed below for more information): S = Set a quit date. Choose a date within the next 2 weeks, so you have enough time to prepare without losing your motivation to quit. If you mainly smoke at work, quit on the weekend, so you have a few days to adjust to the change. T = Tell family, friends, and co-workers that you plan to quit. Let your friends and family in on your plan to quit smoking and tell them you need their support and encouragement to stop. Look for a quit rosy who wants to stop smoking as well. You can help each other get through the rough times. A = Anticipate and plan for the challenges you'll face while quitting. Most people who begin smoking again do so within the first 3 months. You can help yourself make it through by preparing ahead for common challenges, such as nicotine withdrawal and cigarette cravings. R = Remove cigarettes and other tobacco products from your home, car, and work. Throw away all your cigarettes (no emergency pack!), lighters, ashtrays, and matches. Wash your clothes and freshen up anything that smells like smoke. Shampoo your car, clean your drapes and carpet, and steam your furniture. T = Talk to your doctor about getting help to quit. Your doctor can prescribe medication to help with withdrawal and suggest other alternatives. If you can't see a doctor, you can get many products over the counter at your local pharmacy or grocery store, including the nicotine patch, nicotine lozenges, and nicotine gum. Resources for Quitting Smoking: <https://www.[place].gov/documents/mdch/Quit_Tobacc o_Resources_for_patients_313480_7.pdf> Supplementation: Take recommended dosages of Vitamin D and Calcium to help fortify your bones and help them to heal. See your health maintenance packet for dosages and recommended levels. DVT/VTE prophylaxis: You will be given compression stockings from the hospital. Wear these daily for the first two weeks after surgery. You may take them off at night. You may be prescribed a medication to help thin your blood. Take this as directed. If you are not prescribed this medication, early and frequent ambulation has been shown to be the best prophylaxis to deep vein thrombosis and sequelae related to this event. Discharge Disposition: HOME WITH HOME HEALTH SERVICES
[2020-11-05] MEDS ORDERED: polyethylene glycoL 3350 17 GM POWD.PACK PO SCH (09:00)
[2020-11-05 09:17] LABS: Basophils # (A) 0.03 X 10*3/uL (0.00-0.10); Basophils % (A) 0.3 %; Eosinophils # (A) 0.07 X 10*3/uL (0.04-0.35); Eosinophils % (A) 0.7 %; HCT 40.7 % (39.6-50.0); HGB 13.6 g/dL (13.0-17.0); Lymphocytes # (A) 1.46 X 10*3/uL (0.90-5.00); MCH 29.4 pg (27.0-32.0); MCHC 33.4 g/dL (32.0-37.0); MCV 88.1 fL (80.0-97.0); Mean Platelet Volume 10.2 fL (9.5-12.2); Monocytes # (A) 0.75 X 10*3/uL (0.20-1.00); Monocytes % (A) 7.7 %; Neutrophils # (A) 7.41 X 10*3/uL (1.80-7.70); Platelet Count 243 X 10*3/uL (140-440); RBC 4.62 X 10*6/uL (4.40-5.60); RDW 12.5 % (11.5-14.5); WBC 9.75 X 10*3/uL (4.50-10.00)
--- NOTE | 2020-11-05 09:27 | P.PN ---
Subjective Progress Note Date: 11/05/20 Principal diagnosis: neck pain Patient is a 50-year-old male with osteoarthritis of the neck who presented for elective cervical discectomy with fusion. He had no immediate postoperative complications. Patient seen and examined at bedside. Pain is well controlled. No nausea, vomiting. No shortness of breath. Throat feels slightly sore but he is tolerating his liquid diet well. He anticipates being discharged today by Dr. Sheikh. General: non toxic, no distress, appears at stated age Derm: warm, dry Head: atraumatic, normocephalic, symmetric Eyes: EOMI, no lid lag, anicteric sclera Neck: Dressing in place over right neck Cardiovascular: S1S2 reg, no murmur, positive posterior tibial pulse bilateral, Lungs: CTA bilateral, no rhonchi, no rales , no accessory muscle use Abdominal: soft, nontender to palpation, no guarding, no appreciable organom egaly Ext: no gross muscle atrophy, no edema, no contractures Neuro: CN II-XI grossly intact, no focal neuro deficits Psych: Alert, oriented, appropriate affect 50-year-old male status post cervical discectomy with fusion Elevated BP without diagnosis of htn - likelt due to pain - improving - repeat BP reading with PCP appointment in 2 weeks Marijuana use - cessation encourage Osteoarthritis with degenerative disc disease - pain mgt - pt/ot - ortho spine recs - CBC and BMP in AM Medicall optimized for discharge. Thank you for allowing us to participate in the care of this pleasant patient. Do not hesitate to contact us with questions. Someone can be reached from the [facility] hospitalist group all hours of the day at [phone] or via perfect serve. Objective - Vital Signs Vital signs: Vital Signs Temp 97.7 F 11/05/20 04:49 Pulse 86 11/05/20 04:49 Resp 18 11/05/20 04:49 BP 154/84 11/05/20 04:49 Pulse Ox 96 11/05/20 04:49 Intake & Output 11/04/20 11/05/20 11/05/20 18:59 06:59 18:59 Intake Total 2450 1240 Output Total 305 0 Balance 2145 1240 Weight 91.8 kg Intake: IV 2450 Intake, IV Titration 1000 Amount 0.9% NaCl with KCl 20 Meq 900 /l 1,000 ml @ 75 mls/hr IV .[id number] [facility] Rx#: [id number] ceFAZolin 2 gm In Sodium 100 Chloride 0.9% 50 ml @ 100 mls/hr IVPB Q8HR [facility] Rx# :[id number] Oral 240 Output: Drainage 0 0 Anterior Neck 0 0 Urine 230 Estimated Blood Loss 75 Other: # Voids 1 - Labs CBC & Chem 7: 11/05/20 05:49
[2020-11-05 09:46] LABS: Anion Gap 9.7 mmol/L (4.00-12.00); Calcium 8.9 mg/dL (8.7-10.3); Carbon Dioxide 27.3 mmol/L (21.6-31.8); Non-African American GFR(CKD) 76.8 (60.0-200.0)
[2020-11-05 10:18] VITALS: PULSE 84
--- NOTE | 2020-11-05 15:25 | P.OP ---
Date of Procedure: 11/04/20 Preoperative Diagnosis: 1. Severe cervical spondylosis C4-7 2. Grade 1 C4-C5 anterior spondylolisthesis Postoperative Diagnosis: 1. Severe cervical spondylosis C4-7 2. Grade 1 C4-C5 anterior spondylolisthesis Procedure(s) Performed: 1. C4-5, C5-6, C6-7 Anterior discectomy and fusion 2. C4-7 placement of interbody cage and graft material 3. C4-7 Anterior plate fixation Implants: [place] plate [place] structural allograft Autograft Anesthesia: GETA Surgeon: Han Sheikh (DEB Spangler was present for the entire case and was necessary due to the complexity of the case. ) Estimated Blood Loss (ml): 75 IV fluids (ml): 2,500 Urine output (ml): 1,000 Pathology: none sent Condition: stable Disposition: PACU Indications for Procedure: This is a patient has had multiple different workups with physical therapy injections and ablations medications home therapy exercises and all conservative measures seemed to fail. He states that he continues to have severe neck pain and crepitance when he moves his neck. He has some neurologic signs in that he has scapular pain down both arms. He does not complain of any myelopathic symptoms at this time. He is unable to perform his daily activities secondary to the severe pain that he has in his neck. He denies any bowel bladder issues he denied any issues with fine motor skills. He denied any issues with balance. He states that the therapy made him worse as well as the injections. He states that the ablations did not help at all. She would like to pursue surgical options. He denies fevers chills shortness of breath or chest pain. Operative Findings: Severe spondylosis with anterior osteophytic formation C4 to C7. C6 7 was completely collapsed C4 5 was completely collapsed and listhesis to anterior. There are large anterior osteophytes from C4 to C6. Description of Procedure: The patient was seen and examined in the preoperative area. All preoperative protocols were followed. Informed consent was obtained risks and benefits of the procedure were discussed at length. Risks including bleeding infection damage to the surrounding tissue and risk of reoperation were discussed with the patient. Risk of anesthesia up to and including was a discussed with the patient. These are outlined in the risk review. They were willing to accept these risks and all of the risks of surgery. The patient was given a weight- based dose of antibiotics in the form of 2 g Ancef IVPB. The patient was seen and evaluated by the anesthesia team who deemed them fit for surgery. The site was marked, the patient was willing to proceed with the procedure. The patient was transferred to the operative suite by the Department of anesthesia. They were then drifted off to sleep by the department anesthesia Gen. endotracheal intubation. The patient tolerated this well. [Medrano catheter was placed by nursing staff, atraumatically]. Once confirmation of lines and ventilation the patient was transferred to a supine flat John table very carefully. All bony prominences including wrists, elbows, axilla, chest, hips, and thighs, and feet were padded very well. Special attention was paid to the genitalia and these were padded accordingly. SCDs were placed on bilateral lower extremities and were connected. Arms were well padded and placed tucked to his side well-padded and secured shoulders were then taped down to allow for visualization a shoulder bump was placed as well as the neck bolster. Knight- Wells tongs were placed for traction and 10 pounds of traction were placed on the head. Once in position, again we confirmed good ventilation capabilities and that lines were running appropriately. The patient's anterior cervical spine was then exposed. 1010s were placed outlining the incision site. Standard alcohol was used to clean the incision site and allowed to dry. C-arm was used to biomark the patient and confirm level for incision which was marked with a skin marker. Operative briefing was performed with all teams and everyone in agreement to proceed. The patient was then prepped and draped in a normal sterile fashion. Timeout was then performed and all parties were in agreement with the procedure to be performed. Skin incision was then made over the previous he by marked area transversely on the right-hand side of the patient's anterior neck. Subcu dissection was elevated to allow for visualization of the platysmal muscle. The platysma was then identified and split longitudinally over the interval of the SCM. Subplatysmal flaps were then raised. The interval between SCM and the medial structures was then developed. Omohyoid was noted and was released. Dissection was then taken down bluntly and carefully through the deep cervical fascia to the anterior cervical spine. The ala was identified. Kitners were then used for the dissection proximally and distally along this plane to allow for visualization and mobilization of the medial structures. Once we had good visualization and mobilization a Henderson 4 was used to again biomarker in the lateral position of the C-arm the correct level. This was then marked with a Bovie. We identified the C5 6 level with the Henderson and then marked this with the Bovie. We then placed the shadow line retractor system and secured it in place. Subperiosteal dissection was then taken of the ala L over the C4 5 5 6 and C6 7 disc spaces to allow for visualization of the disc space as well as uncovertebral joints bilaterally. Once we had raised flaps in these areas and rays longitude just in his flaps we then replaced the shadow line retractor to be below this to allow for protection of the structures. We then visualized the C6 7 disc space on lateral x-ray and all was used in the C7 body followed by a cast bar pins which was placed. A handheld Cloward retractor ensured protection of the esophagus. An awl and [place] pin were then placed in the C6 vertebral emmanuel dy under lateral fluoroscopy. Distractor was then placed and distracted. We then proceeded the discectomy of C6-C7 once discectomy was performed. Allow was released entirely and foraminotomies were performed bilaterally. This allowed for good release of C6 and C7 which was essentially completely collapsed. We then sized the space with the lollipop sizers indeterminate to be around an 8. 8 rasp was then placed within the area. We made sure to completely clean the bone of any cartilaginous material and bur ensured a flat surface for acceptance of the graft. Graft was selected and impacted into place under lateral fluoroscopy. Distraction was then removed from these levels [place] pin was removed from C7 and a bone wax plug was placed in its place. Then turned our attention to the C5 6 level has poor pin was placed in the C5 vertebral body under lateral fluoroscopy. C5 6 discectomy was then performed and distractor placed allow freeing distraction with area. The lamina silk screen operator was used for gentle distraction of the distractor held this distraction. We then did a complete discectomy at C5-C6 with a combination of Carrasquillo curettes and the bur. We burred down posterior osteophytes and this allowed for visualization of the PLL. PLL was then removed entirely and foraminotomies were performed bilaterally. Hemostasis was performed with Surgicel and Kristina. We then sized the space and a 7 spacer was selected. This is then impacted into place under lateral fluoroscopy. Once in good position distraction was removed from this level the [place] pin was removed from C6 add a bone wax plug was placed in its void. We then turned our attention to C4 5 [place] pin was placed in C4 and distractor placed allow distraction lamina spreaders placed in the C4 5 interspace which allowed for good distraction. We then performed a C4 5 discectomy completely removing disc and cartilaginous material once again with curettes and Carrasquillo bur was used to bur down posterior osteophytes and the posterior longitudinal ligament was resected entirely and bilateral foraminotomies performed. Meticulous hemostasis was then performed graft was then sized and a 7 graft selected and placed. It is impacted position under lateral fluoroscopy and in good position. Distractor was then removed [place] pins removed from C4 and C5 and bone wax plugs placed in their void. We then removed the exuberant anterior osteophytes from the vertebral bodies of C4 through C7 to allow for a flat surface for acceptance of a plate. A plate was then selected and sized on lateral fluoroscopy and AP shot was then taken to ensure that the plate was midline which it was and so a pin was placed in the plate to temporary hold it. We then placed fixed angled screws at the lower 2 levels with a drill guide followed by drill and screw taking care to protect all soft tissue thoroughly. Screws then placed in C7 C6 followed by variable screws at C5 and C4 using the same method. This was all done under lateral fluoroscopy. Once this was completed AP and lateral fluoroscopy were taken and confirmed good placement of hardware. The wound was then copiously irrigated with normal sterile saline. Surgicel was placed deep within the wound and a deep drain was placed out a separate incision. The esophagus was inspected and there was no damage. The platysmal flap was then closed with 3-0 Vicryl in a simple fashion followed by subcu closure with 3-0 Vicryl in simple fashion followed by subcuticular closure with a 40 strata fix Monocryl the wound was then cleaned with alcohol and dried and dressed with sterile exophytic glue followed by Telfa 4 x 4's and Tegaderms. The drain was sewn into place with a nylon stitch and dressed as well. The patient was transferred back to [facility] bed atraumatically. Drain continued to hold suction and were in good position. Patient was then awakened and extubated by the department of anesthesia having tolerated the procedure very well with no complications. he was transferred to the postoperative care unit in stable condition.
== END 2020-11-05 13:02 | disposition home or self-care (01) | DRG 473 ==
LOC: 2ORMAIN 05:41 → 5NMEDONC 12:15
PROVIDERS: ADMIT Orthopaedic Surgery; ATTEND Orthopaedic Surgery
PROC: 0RB30ZZ Excision of Cervical Vertebral Disc, Open Approach (ICD-10-PCS; 2020-11-04)
PROC: 0RG20A0 Fusion of 2 or more Cervical Vertebral Joints with Interbody Fusion Device, Anterior Approach, Anterior Column, Open Approach (ICD-10-PCS; principal; 2020-11-04 07:30)
DX: M47.22 Other spondylosis with radiculopathy, cervical region (principal); M43.12 Spondylolisthesis, cervical region; M48.02 Spinal stenosis, cervical region; R03.0 Elevated blood-pressure reading, without diagnosis of hypertension; M50.121 Cervical disc disorder at C4-C5 level with radiculopathy; E66.9 Obesity, unspecified; Z68.26 Body mass index [BMI] 26.0-26.9, adult
CPT/HCPCS: 36415; 72040; 72125; 80048; 85025; 86850; 86900; 86901

== ENCOUNTER 2021-08-31 10:07 | Emergency (ER) | payer MEDICAID ==
[2021-08-31 11:19] VITALS: TEMP 98.9
--- NOTE | 2021-08-31 12:47 | ED ---
URI HPI - General Chief Complaint: Upper Respiratory Infection Stated Complaint: Covid Test, LOR, Chest heavy Time Seen by Provider: 08/31/21 11:59 Source: patient, RN notes reviewed Mode of arrival: ambulatory Limitations: no limitations - History of Present Illness Initial Comments: Patient is a 51-year-old male presenting to the emergency department requesting a covid teste. Patient states he is in close contact with a coworker of his that was covid positive. Patient started having a slight cough and chest congestion since yesterday and is requesting a Covid test. He denies any chest pain or shortness of breath, no nausea or vomiting. He states he overall feels okay, has been eating and drinking as normal. Patient denies any fevers or ch ills. He has no further complaints. His vital signs are stable upon arrival. - Related Data Previous Rx's Medication Instructions Recorded Cyclobenzaprine [Flexeril] 10 mg PO HS PRN #30 tab 11/05/20 Gabapentin 300 mg PO BID 3 Days #6 cap 11/05/20 HYDROcodone/APAP 5-325MG [[place] 1 - 2 tab PO Q6HR PRN #50 tab 11/05/20 5-325] Ondansetron Odt [Zofran Odt] 4 mg PO Q8HR PRN #20 tab 11/05/20 Sennosides/Docusate Sodium [Senna 1 each PO BID PRN #20 capsule 11/05/20 Plus 8.6-50 mg Softgel] cefaDROXiL [Duricef] 1 gm PO Q12HR #6 tab 11/05/20 Allergies Allergy/AdvReac Type Severity Reaction Status Date / Time No Known Allergies Allergy Verified 08/31/21 11:15 Review of Systems ROS Statement: Those systems with pertinent positive or pertinent negative responses have been documented in the HPI. ROS Other: All systems not noted in ROS Statement are negative. Past Medical History Past Medical History: Osteoarthritis (OA) Additional Past Medical History / Comment(s): DDD History of Any Multi-Drug Resistant Organisms: None Reported Past Surgical History: Orthopedic Surgery Additional Past Surgical History / Comment(s): lt knee. colonoscopy. cervical fusion Past Anesthesia/Blood Transfusion Reactions: Postoperative Nausea & Vomiting (PONV) Past Psychological History: No Psychological Hx Reported Smoking Status: Never smoker Past Alcohol Use History: None Reported Past Drug Use History: Marijuana - Past Family History Mother Family Medical History: No Reported History General Exam - General Exam Comments Initial Comments: GENERAL: Patient is well-developed and well-nourished. Patient is nontoxic and in no acute distress. HEAD: Atraumatic, normocephalic. EYES: Pupils equal round and reactive to light, extraocular movements intact, sclera anicteric, conjunctiva are normal. Eyelids were unremarkable. ENT: Moist mucous membranes. NECK: Normal range of motion, supple without lymphadenopathy or JVD. LUNGS: Unlabored respirations. Breath sounds clear to auscultation bilaterally and equal. No wheezes rales or rhonchi. HEART: Regular rate and rhythm without murmurs, rubs or gallops. ABDOMEN: Soft, nontender, normoactive bowel sounds. No guarding, no rebound. No masses appreciated. MUSCULOSKELETAL: Normal extremities with adequate strength and normal range of motion, no pitting or edema. No clubbing or cyanosis. NEUROLOGICAL: Patient is alert and oriented x 3. SKIN: Warm, Dry, normal turgor, no rashes or lesions noted. Limitations: no limitations Course Vital Signs 08/31/21 08/31/21 11:16 13:00 Temperature 98.9 F Pulse Rate 76 74 Respiratory 18 20 Rate Blood Pressure 143/87 132/60 O2 Sat by Pulse 99 99 Oximetry Medical Decision Making - Medical Decision Making Patient is a 51-year-old male here requesting a Covid test due to recent exposure and developing mild cough and chest congestion yesterday. His vital signs are stable, exam is unremarkable. His Covid test today is negative. I discussed the patient's is most likely viral. May treat the symptoms with [id number] medications. He is agreeable with this plan and care and he is stable for discharge. - Lab Data Lab Results 08/31/21 Range/Units 11:21 Coronavirus (PCR) Not Detected (Not Detectd) Disposition Clinical Impression: Viral respiratory illness, Cough Disposition: HOME SELF-CARE Condition: Stable Instructions (If sedation given, give patient instructions): Upper Respiratory Infection (ED) Additional Instructions: Please return to the Emergency Department if symptoms worsen or any other concerns. Covid test is negative. Treatment symptoms with [id number]-qeyglay medications. Please follow-up with your primary care. Is patient prescribed a controlled substance at d/c from ED?: No Referrals: Ruby Turner MD [Primary Care Provider] - 1-2 days Time of Disposition: 12:46
[2021-08-31 13:02] VITALS: BP 132/60; PULSE 74; RESP 20
== END 2021-08-31 13:02 | disposition home or self-care (01) ==
LOC: EC 10:07
DX: B34.9 Viral infection, unspecified (principal); Z20.822 Contact with and (suspected) exposure to COVID-19
CPT/HCPCS: 87635; 99283

== ENCOUNTER 2023-09-26 11:28 | Emergency (ER) | payer MEDICAID, OTHER ==
[2023-09-26 11:36] VITALS: RESP 18
[2023-09-26] MEDS ORDERED: METOCLOPRAMIDE 5 MG/ML 2 ML VIAL IVP STA (12:19)
[2023-09-26] MEDS ORDERED: SODIUM CHLORIDE 0.9% 1,000 ML IV STA (12:19)
[2023-09-26] MEDS ORDERED: diphenhydrAMINE 50 MG/ML 1 ML VIAL IVP STA (12:19)
[2023-09-26] MEDS ORDERED: HYDROmorphone 1 MG/ML 1 ML SYRINGE IVP STA (12:20)
--- NOTE | 2023-09-26 12:25 | ED ---
General Adult HPI - General Chief complaint: Headache Stated complaint: headache Time Seen by Provider: 09/26/23 11:57 Source: patient, RN notes reviewed Mode of arrival: wheelchair Limitations: no limitations - History of Present Illness Initial comments: Patient is a pleasant 33-year-old male presenting to the emergency department with concern for headache. Onset of headache was yesterday morning. Patient does have history of similar symptoms a associated with migraines. Patient states headache is severe. Patient states it is waxing and waning. Headache is bilateral temporal region. No nausea vomiting. No photophobia. No weakness or confusion. Patient does complain of paresthesias. - Related Data Previous Rx's Medication Instructions Recorded Cyclobenzaprine [Flexeril] 10 mg PO HS PRN #30 tab 11/05/20 Gabapentin 300 mg PO BID 3 Days #6 cap 11/05/20 HYDROcodone/APAP 5-325MG [[place] 1 - 2 tab PO Q6HR PRN #50 tab 11/05/20 5-325] Ondansetron Odt [Zofran Odt] 4 mg PO Q8HR PRN #20 tab 11/05/20 Sennosides/Docusate Sodium [Senna 1 each PO BID PRN #20 capsule 11/05/20 Plus 8.6-50 mg Softgel] cefaDROXiL [Duricef] 1 gm PO Q12HR #6 tab 11/05/20 Allergies Allergy/AdvReac Type Severity Reaction Status Date / Time No Known Allergies Allergy Verified 09/26/23 11:34 Review of Systems ROS Statement: Those systems with pertinent positive or pertinent negative responses have been documented in the HPI. ROS Other: All systems not noted in ROS Statement are negative. Constitutional: Denies: fever Eyes: Denies: eye pain, vision change ENT: Denies: ear pain Respiratory: Denies: cough, dyspnea Cardiovascular: Denies: chest pain Gastrointestinal: Denies: abdominal pain Neurological: Reports: headache. Denies: weakness, confusion Past Medical History Past Medical History: Osteoarthritis (OA) Additional Past Medical History / Comment(s): DDD History of Any Multi-Drug Resistant Organisms: None Reported Past Surgical History: Orthopedic Surgery Additional Past Surgical History / Comment(s): lt knee. colonoscopy. cervical fusion Past Anesthesia/Blood Transfusion Reactions: Postoperative Nausea & Vomiting (PONV) Past Psychological History: No Psychological Hx Reported Smoking Status: Never smoker Past Alcohol Use History: None Reported Past Drug Use History: Marijuana - Past Family History Mother Family Medical History: No Reported History General Exam Limitations: no limitations General appearance: alert, in no apparent distress Head exam: Present: normocephalic, other (No temporal tenderness) Eye exam: Present: normal appearance, PERRL, EOMI ENT exam: Present: normal oropharynx Neck exam: Present: normal inspection Respiratory exam: Present: normal lung sounds bilaterally Cardiovascular Exam: Present: regular rate, normal rhythm GI/Abdominal exam: Present: soft. Absent: tenderness Extremities exam: Present: normal inspection Neurological exam: Present: alert, oriented X3, CN II-XII intact. Absent: motor sensory deficit Expanded Neurological exam: Present: protecting the airway Speech: Present: fluid speech Cranial nerves: EOM's Intact: Normal, Facial Sensation: Normal Sensory exam: Upper Extremity Light Touch: Normal, Lower Extremity Light Touch: Normal Motor strength exam: RUE: 5, LUE: 5, RLE: 5, LLE: 5 Eye Response: (4) open spontaneously Motor Response: (6) obeys commands Verbal Response: (5) oriented Psychiatric exam: Present: normal affect, normal mood Skin exam: Present: normal color Course Vital Signs 09/26/23 09/26/23 11:31 14:11 Temperature 97.9 F Pulse Rate 89 61 Respiratory 18 18 Rate Blood Pressure 146/100 131/83 O2 Sat by Pulse 100 95 Oximetry Medical Decision Making - Medical Decision Making Was pt. sent in by a medical professional or institution (, PA, POWER LINE INSTALLER AND REPAIRER, urgent care, hospital, or snf...) When possible be specific @ -No Did you speak to anyone other than the patient for history (EMS, parent, family, police, friend...)? What history was obtained from this source @ - is present and helps provide history for previous migraines. Did you review nursing and triage notes (agree or disagree)? Why? @ -I reviewed and agree with nursing and triage notes Were old charts reviewed (outside hosp., previous admission, EMS record, old EKG, old radiological studies, urgent care reports/EKG's, snf records)? Report findings @ -No old charts were reviewed Differential Diagnosis (chest pain, altered mental status, abdominal pain women, abdominal pain men, vaginal bleeding, weakness, fever, dyspnea, syncope, headache, dizziness, GI bleed, back pain, seizure, CVA, palpatations, mental health, musculoskeletal)? @ -Differential Headache: Migraine, tension, cluster, carbon monoxide, central venous thrombosis, pension karma temporal arteritis, acute closure glaucoma, intercranial hemorrhage, mastoiditis, sinusitis, head injury, this is not meant to be an all-inclusive list. EKG interpreted by me (3pts min.). @ -As above X-rays interpreted by me (1pt min.). @ -None done CT interpreted by me (1pt min.). @ -Computed tomography scan of brain does not reveal acute abnormality. U/S interpreted by me (1pt. min.). @ -None done What testing was considered but not performed or refused? (CT, X-rays, U/S, labs)? Why? @ -None What meds were considered but not given or refused? Why? @ -None Did you discuss the management of the patient with other professionals (professionals i.e. , PA, POWER LINE INSTALLER AND REPAIRER, lab, RT, psych nurse, social work professor, tubing machine tender, teacher, dispatch officer, test case developer)? Give summary @ -No Was smoking cessation discussed for >3mins.? @ -No Was critical care preformed (if so, how long)? @ -No Were there social determinants of health that impacted care today? How? (Homele ssness, low income, unemployed, alcoholism, drug addiction, transportation, low edu. Level, literacy, decrease access to med. care, group home, rehab)? @ -No Was there de-escalation of care discussed even if they declined (Discuss DNR or withdrawal of care, Hospice)? DNR status @ -No What co-morbidities impacted this encounter? (DM, HTN, Smoking, COPD, CAD, Cancer, CVA, ARF, Chemo, Hep., AIDS, mental health diagnosis, sleep apnea, morbid obesity)? @ -None Was patient admitted / discharged? Hospital course, mention meds given and route, prescriptions, significant lab abnormalities, going to OR and other pertinent info. @ -Patient still had some discomfort following first round of medications. Patient provided additional medications reevaluated. Patient sitting up and feeling much better. Patient is comfortable with discharge home. Patient and family are updated on results as well as need for follow-up. Undiagnosed new problem with uncertain prognosis? @ -No Drug Therapy requiring intensive monitoring for toxicity (Heparin, Nitro, Insulin, Cardizem)? @ -No Were any procedures done? @ -No Diagnosis/symptom? @ -Cephalgia Acute, or Chronic, or Acute on Chronic? @ -Acute Uncomplicated (without systemic symptoms) or Complicated (systemic symptoms)? @ -default Side effects of treatment? @ -No Exacerbation, Progression, or Severe Exacerbation? @ -No Poses a threat to life or bodily function? How? (Chest pain, [place], [place], pneumonia, PE, COPD, DKA, ARF, appy, cholecystitis, CVA, Diverticulitis, Homicidal, Suicidal, threat to staff... and all critical care pts) @ -No - Lab Data Result diagrams: 09/26/23 12:24 09/26/23 12:24 Lab Results 09/26/23 09/26/23 09/26/23 Range/Units 12:24 12:24 12:24 WBC 7.5 (3.8-10.6) k/uL RBC 5.31 (4.30-5.90) m/uL Hgb 16.1 (13.0-17.5) gm/dL Hct 45.6 (39.0-53.0) % MCV 86.0 (80.0-100.0) fL MCH 30.3 (25.0-35.0) pg MCHC 35.2 (31.0-37.0) g/dL RDW 12.6 (11.5-15.5) % Plt Count 258 (150-450) k/uL MPV 7.7 Neutrophils % 75 % Lymphocytes % 15 % Monocytes % 5 % Eosinophils % 4 % Basophils % 0 % Neutrophils # 5.6 (1.3-7.7) k/uL Lymphocytes # 1.1 (1.0-4.8) k/uL Monocytes # 0.4 (0-1.0) k/uL Eosinophils # 0.3 (0-0.7) k/uL Basophils # 0.0 (0-0.2) k/uL PT 10.2 (10.0-12.5) sec INR 0.9 (<1.2) APTT 23.1 (22.0-30.0) sec Sodium 139 (137-145) mmol/L Potassium 3.4 L (3.5-5.1) mmol/L Chloride 105 (98-107) mmol/L Carbon Dioxide 20 L (22-30) mmol/L Anion Gap 14 mmol/L BUN 14 (9-20) mg/dL Creatinine 1.08 (0.66-1.25) mg/dL Est GFR (CKD-EPI)AfAm 89 (>60 ml/min/1.73 sqM) Est GFR (CKD-EPI)NonAf 77 (>60 ml/min/1.73 sqM) Glucose 103 H (74-99) mg/dL Calcium 9.4 (8.4-10.2) mg/dL Total Bilirubin 0.8 (0.2-1.3) mg/dL AST 22 (17-59) U/L ALT 21 (4-49) U/L Alkaline Phosphatase 65 (38-126) U/L Total Protein 7.5 (6.3-8.2) g/dL Albumin 4.4 (3.5-5.0) g/dL Disposition Clinical Impression: Headache Disposition: HOME SELF-CARE Condition: Stable Instructions (If sedation given, give patient instructions): Acute Headache ( ED) Additional Instructions: Please do follow-up with your primary care physician tomorrow. Return for increased pain, weakness, confusion, fevers, worsening or changing symptoms or other concerns. Is patient prescribed a controlled substance at d/c from ED?: No Referrals: Domenic Lu MD [STAFF PHYSICIAN] - 1-2 days Time of Disposition: 16:20
[2023-09-26 12:41] LABS: Basophils % (A) 0 %; Eosinophils # (A) 0.3 k/uL (0-0.7); Eosinophils % (A) 4 %; HCT 45.6 % (39.0-53.0); HGB 16.1 gm/dL (13.0-17.5); Lymphocytes # (A) 1.1 k/uL (1.0-4.8); Lymphocytes % (A) 15 %; MCH 30.3 pg (25.0-35.0); MCHC 35.2 g/dL (31.0-37.0); Mean Platelet Volume 7.7; Monocytes # (A) 0.4 k/uL (0-1.0); Monocytes % (A) 5 %; Neutrophils # (A) 5.6 k/uL (1.3-7.7); Neutrophils % (A) 75 %; Platelet Count 258 k/uL (150-450); RBC 5.31 m/uL (4.30-5.90); RDW 12.6 % (11.5-15.5); WBC 7.5 k/uL (3.8-10.6)
[2023-09-26 12:54] LABS: ALT 21 U/L (4-49); AST 22 U/L (17-59); African American GFR (CKD) 89 (>60 ml/min/1.73 sqM); Albumin 4.4 g/dL (3.5-5.0); Alkaline Phosphatase 65 U/L (38-126); Anion Gap 14 mmol/L; Blood Urea Nitrogen 14 mg/dL (9-20); Calcium 9.4 mg/dL (8.4-10.2); Carbon Dioxide 20 mmol/L (22-30); Chloride 105 mmol/L (98-107); Glucose 103 mg/dL (74-99); Non-African American GFR(CKD) 77 (>60 ml/min/1.73 sqM); Potassium 3.4 mmol/L (3.5-5.1); Sodium 139 mmol/L (137-145); Total Bilirubin 0.8 mg/dL (0.2-1.3); Total Protein 7.5 g/dL (6.3-8.2)
[2023-09-26 13:01] LABS: INR 0.9 (<1.2); Partial Thromboplastin Time 23.1 sec (22.0-30.0); Prothrombin Time 10.2 sec (10.0-12.5)
--- NOTE | 2023-09-26 13:08 | CT ---
EXAMINATION TYPE: CT brain wo con DATE OF EXAM: 09/26/2023 COMPARISON: None HISTORY: 53-year-old male headache TECHNIQUE: Examination was done in axial plane without intravenous contrast. Coronal and sagittal r econstructions performed. CT DLP: 1091 mGycm Automated exposure control for dose reduction was used. FINDINGS: There is no evidence of acute intracranial hemorrhage, acute ischemic changes, mass, mass-effect, or extra-axial fluid collection. There is no effacement of cerebral sulci or basal subarachnoid cister ns. There is no hydrocephalus. There is no midline shift. Gomez-white matter distinction is preserv ed. Mild patchy hypodensities in both cerebral hemispheres. Old blowout fracture left orbital floor. Slight leftward nasal septal deviation. Mastoid air cells ar e well pneumatized. IMPRESSION: No acute intracranial abnormality seen. Mild patchy burden of chronic small vessel ischemic disease. Old blowout fracture left orbital floor.
--- NOTE | 2023-09-26 13:20 | CT ---
EXAMINATION TYPE: CT angio head DATE OF EXAM: 09/26/2023 COMPARISON: CT brain same day HISTORY: 53-year-old male headache TECHNIQUE: Contiguous axial scanning of the brain performed with IV Contrast, patient injected with 1 00 mL of Isovue 300.: Coronal and sagittal reconstructions performed. 3-D reconstructions generated o n a dedicated independent workstation. CT DLP: 602.5 mGycm Automated exposure control for dose reduction was used. FINDINGS: The bilateral vertebral and basilar arteries are patent. There is persistent origin left rooming house inspector ior cerebral artery. Bilateral internal carotid arteries and remainder of the anterior circulation is patent. No aneurysmal change is seen. Venous sinuses are patent. IMPRESSION: ANATOMIC VARIATION WITH PERSISTENT ORIGIN LEFT BAT BOY/GIRL. NO OTHER SPECIFIC ABNORMALITY OF THE [place]. NO ANEURYSMAL CHANGE IS SEEN.
[2023-09-26] MEDS ORDERED: KETOROLAC 15 MG/ML 1 ML VIAL IVP STA (13:35)
[2023-09-26] MEDS ORDERED: CAFFEINE-SODIUM BENZOATE 500 MG in SODIUM CHLORIDE 0.9% 1,000 ML IVPB ONE (14:00)
[2023-09-26 17:13] VITALS: BP 147/88; PULSE 67; TEMP 98.1
== END 2023-09-26 17:01 | disposition home or self-care (01) ==
LOC: EC 11:28
DX: R51.9 Headache, unspecified (principal); F12.90 Cannabis use, unspecified, uncomplicated
CPT/HCPCS: 99284 ×2; 96365 ×2; 96375 ×5; 96361 ×2; 36415; 80053; 85025; 85610; 85730; 70496; 70450; J1200; J2765; J1170; J1885; Q9967

== ENCOUNTER 2023-11-14 20:46 | Emergency (ER) | payer OTHER ==
[2023-11-14 21:02] VITALS: TEMP 98.1
[2023-11-14] MEDS: SODIUM CHLORIDE 0.9% 1,000 ML IV ONE ×2 (21:10→22:07)
[2023-11-14] MEDS: ONDANSETRON 4 MG/2 ML VIAL IVP STA (21:10)
--- NOTE | 2023-11-14 21:11 | ED ---
Syncope HPI - General Chief Complaint: Syncope Stated Complaint: Syncope-Head Injury Time Seen by Provider: 11/14/23 20:53 Source: patient, family, EMS Mode of arrival: EMS Limitations: no limitations - History of Present Illness Initial Comments: Patient is a 53-year-old man who presents to have evaluation after syncopal episodes. Patient had passed out this morning, and then again tonight after bowel movement. He has not been feeling well since Tuesday, having what he thought was food poisoning. He had nausea vomiting and diarrhea as well as some crampy abdominal pains. The patient states currently there is no abdominal pain. He has continued to have watery bowel movements including today just prior to the second syncopal episode. With that episode he fell and struck his nose, and his states he was unconscious for a couple of minutes. She called EMS to bring him to the hospital. When the patient was assisted to a chair in the waiting room here he did briefly pass out again. The patient is denying chest pain, dyspnea, diaphoresis, palpitations. He does feel lightheaded when he stands. The patient has not noted any bloody or coffee- ground emesis. Similarly no bloody or tarry stools. MD Complaint: collapsed -: minutes(s) Prodromal Symptoms: lightheaded, nausea/vomiting -: minutes(s) Witnessed: yes - by bystander Injuries Sustained Associated with Event: Face Current Symptoms: lightheaded Context: standing up Treatments Prior to Arrival: none - Related Data Previous Rx's Medication Instructions Recorded Cephalexin [Keflex] 500 mg PO Q6HR #28 cap 11/14/23 Ibuprofen [Motrin] 600 mg PO Q8HR PRN #20 tab 11/14/23 Ondansetron Odt [Zofran ODT] 4 mg PO Q8HR PRN #10 tab 11/14/23 Allergies Allergy/AdvReac Type Severity Reaction Status Date / Time No Known Allergies Allergy Verified 11/14/23 22:12 Review of Systems ROS Statement: Those systems with pertinent positive or pertinent negative responses have been documented in the HPI. ROS Other: All systems not noted in ROS Statement are negative. Constitutional: Reports: chills, weakness. Denies: fever Eyes: Denies: vision change Respiratory: Denies: cough, dyspnea Cardiovascular: Reports: syncope. Denies: chest pain, palpitations, dyspnea on exertion, orthopnea Gastrointestinal: Reports: abdominal pain, nausea, vomiting, diarrhea. Denies: hematemesis, melena, hematochezia Genitourinary: Denies: dysuria, hematuria Musculoskeletal: Denies: back pain Skin: Denies: rash Neurological: Denies: headache, weakness Past Medical History Past Medical History: Osteoarthritis (OA) Additional Past Medical History / Comment(s): DDD History of Any Multi-Drug Resistant Organisms: None Reported Past Surgical History: Orthopedic Surgery Additional Past Surgical History / Comment(s): lt knee. colonoscopy. cervical fusion Past Anesthesia/Blood Transfusion Reactions: Postoperative Nausea & Vomiting (PONV) Past Psychological History: No Psychological Hx Reported Smoking Status: Never smoker Past Alcohol Use History: None Reported Past Drug Use History: Marijuana - Past Family History Mother Family Medical History: No Reported History General Exam Limitations: no limitations General appearance: alert, in no apparent distress Head exam: Present: atraumatic, normocephalic Eye exam: Present: normal appearance. Absent: scleral icterus, conjunctival injection ENT exam: Present: mucous membranes dry Neck exam: Present: normal inspection, tenderness, full ROM. Absent: meningismus Respiratory exam: Present: normal lung sounds bilaterally. Absent: respiratory distress, wheezes, rales, rhonchi, stridor, accessory muscle use Cardiovascular Exam: Present: regular rate, normal rhythm, normal heart sounds. Absent: systolic murmur, diastolic murmur, rubs, gallop GI/Abdominal exam: Present: soft. Absent: distended, tenderness, guarding, rebound, rigid, mass Extremities exam: Present: normal inspection, normal capillary refill. Absent: pedal edema, calf tenderness Back exam: Present: normal inspection. Absent: CVA tenderness (R), CVA ten derness (L) Neurological exam: Present: alert Skin exam: Present: warm, dry, intact, normal color. Absent: rash Course Vital Signs 11/14/23 11/14/23 11/14/23 20:55 21:47 23:00 Temperature 98.1 F Pulse Rate 70 80 77 Respiratory 26 H 22 13 Rate Blood Pressure 121/84 131/78 115/77 O2 Sat by Pulse 100 100 96 Oximetry 11/14/23 23:44 Temperature Pulse Rate 77 Respiratory 16 Rate Blood Pressure 128/82 O2 Sat by Pulse 96 Oximetry EKG Findings - EKG Results: EKG: interpreted by ERMD, sinus rhythm (Rate 75 bpm) - Blocks, [place], Hypertrophy, ST Abn: AV and intraventricular conduction: right bundle branch block (fixed/intermittent, complete/incomplete) (Incomplete) QRS axis and voltage: left axis deviation (-30 to -90) Chamber hypertrophy or enlargement: only voltage criteria for left ventricular hypertrophy Procedures - Laceration Laceration #1 Consent Obtained: verbal consent Indication: laceration Site: face Size (cm): 1 Description: linear Depth: simple, single layer Type of Sutures: other (Skin adhesive) Patient Tolerated Procedure: well, no complications Medical Decision Making - Medical Decision Making The patient had chest x-ray which I interpreted as negative for infiltrate, pneumothorax, acute bony injury The patient had CT scan of the brain and C-spine that I interpreted as negative for intracranial hemorrhage. There is nasal bone fracture. Was pt. sent in by a medical professional or institution (, PA, PAPER MACHINE BACKTENDER, urgent care, hospital, or half-way...) When possible be specific @ -[No] Did you speak to anyone other than the patient for history (EMS, parent, family, police, friend...)? What history was obtained from this source @ -[No] Did you review nursing and triage notes (agree or disagree)? Why? @ -[I reviewed and agree with nursing and triage notes] Were old charts reviewed (outside hosp., previous admission, EMS record, old EKG, old radiological studies, urgent care reports/EKG's, half-way records)? Report findings @ -[No old charts were reviewed] Differential Diagnosis (chest pain, altered mental status, abdominal pain women, abdominal pain men, vaginal bleeding, weakness, fever, dyspnea, syncope, headache, dizziness, GI bleed, back pain, seizure, CVA, palpatations, mental health, musculoskeletal)? @ -Differential Syncope: Valvular disease, hypertrophic cardiomyopathy, pulmonary embolism, tamponade, tachycardia, bradycardia, AR, hypovolemia, hemorrhage, dissection, anemia, intracranial hemorrhage, seizure, hypoglycemia, carbon monoxide poisoning, this is not meant to be an all-inclusive list. EKG interpreted by me (3pts min.). @ -[I interpreted As above] X-rays interpreted by me (1pt min.). @ -[I interpreted as above CT interpreted by me (1pt min.). @ -[I interpreted as above U/S interpreted by me (1pt. min.). @ -[None done] What testing was considered but not performed or refused? (CT, X-rays, U/S, labs)? Why? @ -[None] What meds were considered but not given or refused? Why? @ -[None] Did you discuss the management of the patient with other professionals (professionals i.e. DrLydia, PA, PAPER MACHINE BACKTENDER, lab, RT, psych nurse, social work faculty member, trolley worker, teacher, hydrographical technical officer, caser)? Give summary @ -[No] Was smoking cessation discussed for >3mins.? @ -[No] Was critical care preformed (if so, how long)? @ -[No] Were there social determinants of health that impacted care today? How? (Homelessness, low income, unemployed, alcoholism, drug addiction, transportation, low edu. Level, literacy, decrease access to med. care, fpc, rehab)? @ -[No] Was there de-escalation of care discussed even if they declined (Discuss DNR or withdrawal of care, Hospice)? DNR status @ -[No] What co-morbidities impacted this encounter? (DM, HTN, Smoking, COPD, CAD, Cancer, CVA, ARF, Chemo, Hep., AIDS, mental health diagnosis, sleep apnea, morbid obesity)? @ -[None] Was patient admitted / discharged? Hospital course, mention meds given and route, prescriptions, significant lab abnormalities, going to OR and other pertinent info. @ -[Patient is 53-year-old man here after passing out and striking his head. He is found to have nasal bone fracture. The patient had IV hydration and was feeling better and wanted to go home. We did discuss admission but at this point he feels well and would like to continue as outpatient. We discussed appropriate further care including seeing the territory account executive for further management of his nasal bone fracture and return parameters should he not be feeling better. Undiagnosed new problem with uncertain prognosis? @ -[No] Drug Therapy requiring intensive monitoring for toxicity (Heparin, Nitro, Insulin, Cardizem)? @ -[No] Were any procedures done? @ -[Skin repair with skin adhesive. Diagnosis/symptom? @ -[Acute syncopal episode Acute gastroenteritis Acute dehydration Acute kidney injury Acute nasal bone fracture Acute, or Chronic, or Acute on Chronic? @ -[Acute Uncomplicated (without systemic symptoms) or Complicated (systemic symptoms)? @ -[Complicated by syncopal episode Side effects of treatment? @ -[No] Exacerbation, Progression, or Severe Exacerbation? @ -[No] Poses a threat to life or bodily function? How? (Chest pain, USA, AR, pneumonia, PE, COPD, DKA, ARF, appy, cholecystitis, CVA, Diverticulitis, Homicidal, Suicidal, threat to staff... and all critical care pts) @ -[No - Lab Data Result diagrams: 11/14/23 21:03 11/14/23 21:03 Lab Results 11/14/23 11/14/23 11/14/23 Range/Units 21: 21: 21: WBC 11.1 H (3.8-10.6) k/uL RBC 5.34 (4.30-5.90) m/uL Hgb 15.8 (13.0-17.5) gm/dL Hct 46.9 (39.0-53.0) % MCV 87.7 (80.0-100.0) fL MCH 29.6 (25.0-35.0) pg MCHC 33.7 (31.0-37.0) g/dL RDW 12.6 (11.5-15.5) % Plt Count 235 (150-450) k/uL MPV 7.8 Neutrophils % 81 % Lymphocytes % 10 % Monocytes % 7 % Eosinophils % 1 % Basophils % 1 % Neutrophils # 9.0 H (1.3-7.7) k/uL Lymphocytes # 1.1 (1.0-4.8) k/uL Monocytes # 0.8 (0-1.0) k/uL Eosinophils # 0.1 (0-0.7) k/uL Basophils # 0.1 (0-0.2) k/uL PT 10.6 (10.0-12.5) sec INR 1.0 (<1.2) APTT 23.4 (22.0-30.0) sec Sodium 139 (137-145) mmol/L Potassium 3.6 (3.5-5.1) mmol/L Chloride 107 (98-107) mmol/L Carbon Dioxide 20 L (22-30) mmol/L Anion Gap 12 mmol/L BUN 23 H (9-20) mg/dL Creatinine 1.89 H (0.66-1.25) mg/dL Est GFR (CKD-EPI)AfAm 45 (>60 ml/min/1.73 sqM) Est GFR (CKD-EPI)NonAf 39 (>60 ml/min/1.73 sqM) Glucose 140 H (74-99) mg/dL Calcium 9.0 (8.4-10.2) mg/dL Magnesium 2.0 (1.6-2.3) mg/dL Total Bilirubin 1.0 (0.2-1.3) mg/dL AST 46 (17-59) U/L ALT 31 (4-49) U/L Alkaline Phosphatase 52 (38-126) U/L Troponin I (0.000-0.034) ng/mL Total Protein 7.5 (6.3-8.2) g/dL Albumin 4.3 (3.5-5.0) g/dL Influenza Type A (PCR) (Not Detectd) Influenza Type B (PCR) (Not Detectd) RSV (PCR) (Not Detectd) SARS-CoV-2 (PCR) (Not Detectd) 11/14/23 11/14/23 Range/Units 21:03 21:44 WBC (3.8-10.6) k/uL RBC (4.30-5.90) m/uL Hgb (13.0-17.5) gm/dL Hct (39.0-53.0) % MCV (80.0-100.0) fL MCH (25.0-35.0) pg MCHC (31.0-37.0) g/dL RDW (11.5-15.5) % Plt Count (150-450) k/uL MPV Neutrophils % % Lymphocytes % % Monocytes % % Eosinophils % % Basophils % % Neutrophils # (1.3-7.7) k/uL Lymphocytes # (1.0-4.8) k/uL Monocytes # (0-1.0) k/uL Eosinophils # (0-0.7) k/uL Basophils # (0-0.2) k/uL PT (10.0-12.5) sec INR (<1.2) APTT (22.0-30.0) sec Sodium (137-145) mmol/L Potassium (3.5-5.1) mmol/L Chloride (98-107) mmol/L Carbon Dioxide (22-30) mmol/L Anion Gap mmol/L BUN (9-20) mg/dL Creatinine (0.66-1.25) mg/dL Est GFR (CKD-EPI)AfAm (>60 ml/min/1.73 sqM) Est GFR (CKD-EPI)NonAf (>60 ml/min/1.73 sqM) Glucose (74-99) mg/dL Calcium (8.4-10.2) mg/dL Magnesium (1.6-2.3) mg/dL Total Bilirubin (0.2-1.3) mg/dL AST (17-59) U/L ALT (4-49) U/L Alkaline Phosphatase (38-126) U/L Troponin I 0.012 (0.000-0.034) ng/mL Total Protein (6.3-8.2) g/dL Albumin (3.5-5.0) g/dL Influenza Type A (PCR) Detected A (Not Detectd) Influenza Type B (PCR) Not Detected (Not Detectd) RSV (PCR) Not Detected (Not Detectd) SARS-CoV-2 (PCR) Not Detected (Not Detectd) Disposition Clinical Impression: Syncopal episodes, Dehydration, Acute kidney injury, Gastroenteritis, Nasal bone fracture Disposition: HOME SELF-CARE Condition: Good Instructions (If sedation given, give patient instructions): Nasal Fracture (ED), Syncope (ED), Gastroenteritis (DC) Prescriptions: Cephalexin [Keflex] 500 mg PO Q6HR #28 cap Ibuprofen [Motrin] 600 mg PO Q8HR PRN #20 tab PRN Reason: Pain Ondansetron Odt [Zofran ODT] 4 mg PO Q8HR PRN #10 tab PRN Reason: Nausea Is patient prescribed a controlled substance at d/c from ED?: No Referrals: None,Stated [Primary Care Provider] - 1-2 days Rakesh Antunez MD [STAFF PHYSICIAN] - 1-2 days
[2023-11-14 21:23] LABS: Basophils # (A) 0.1 k/uL (0-0.2); Basophils % (A) 1 %; Eosinophils # (A) 0.1 k/uL (0-0.7); Eosinophils % (A) 1 %; HCT 46.9 % (39.0-53.0); HGB 15.8 gm/dL (13.0-17.5); Lymphocytes # (A) 1.1 k/uL (1.0-4.8); Lymphocytes % (A) 10 %; MCH 29.6 pg (25.0-35.0); MCHC 33.7 g/dL (31.0-37.0); MCV 87.7 fL (80.0-100.0); Mean Platelet Volume 7.8; Monocytes # (A) 0.8 k/uL (0-1.0); Monocytes % (A) 7 %; Neutrophils % (A) 81 %; Platelet Count 235 k/uL (150-450); RBC 5.34 m/uL (4.30-5.90); RDW 12.6 % (11.5-15.5); WBC 11.1 k/uL (3.8-10.6)
[2023-11-14 21:30] LABS: ALT 31 U/L (4-49); AST 46 U/L (17-59); African American GFR (CKD) 45 (>60 ml/min/1.73 sqM); Albumin 4.3 g/dL (3.5-5.0); Alkaline Phosphatase 52 U/L (38-126); Anion Gap 12 mmol/L; Blood Urea Nitrogen 23 mg/dL (9-20); Carbon Dioxide 20 mmol/L (22-30); Chloride 107 mmol/L (98-107); Glucose 140 mg/dL (74-99); Non-African American GFR(CKD) 39 (>60 ml/min/1.73 sqM); Potassium 3.6 mmol/L (3.5-5.1); Sodium 139 mmol/L (137-145); Total Protein 7.5 g/dL (6.3-8.2)
--- NOTE | 2023-11-14 21:38 | CT ---
EXAMINATION TYPE: CT brain cspine wo con DATE OF EXAM: 11/14/2023 COMPARISON: Head CT dated 09/26/2023 and cervical spine dated 11/04/2020 HISTORY: syncope, fall. Lac to nose. CT DLP: 1538.1 mGycm Automated exposure control for dose reduction was used. TECHNIQUE: CT scan of the head and cervical spine are performed without contrast. FINDINGS: Findings: Head CT: Ventricles, basal cisterns and sulci over convexities within normal limits and there is no mass, mass effect or shift of midline structures. No abnormal density is seen throughout the brain parenchyma and there is no acute intra or extra-axia l hemorrhage. Posterior fossa including the brainstem, fourth ventricle and cerebellar pontine angles are grossly n ormal. The intraorbital contents appear normal and symmetric. Visualized paranasal sinuses are well aerated. There is a displaced nasal bone fracture. CT cervical spine: Craniovertebral junction relationships and prevertebral soft tissues are normal. There is anterior and interdisc fusion of C4 through C7. There is mild degenerative disc disease at t he C2-3 and C3-4 levels there is mild spondylosis. There is mild degeneration of the uncovertebral joints at the C2-3 and C3-4 levels. There is no bony encroachment of the cervical canal. There is moderate to severe bony neural foraminal stenosis C3-4 level on the left at the C6-7 level o n the left. IMPRESSION: 1. Head CT: No acute bleed or mass effect. Nasal bone fracture. 2. CT cervical spine: No acute trauma. Cervical fusion and mild degenerative changes.
--- NOTE | 2023-11-14 21:39 | XR ---
EXAMINATION TYPE: XR chest 2V DATE OF EXAM: 11/14/2023 COMPARISON: 11/10/2017 HISTORY: Syncope TECHNIQUE: Frontal and lateral views of the chest are obtained. FINDINGS: There is no focal air space opacity, pleural effusion, or pneumothorax seen. The cardiac silhouette size is within normal limits. The osseous structures are intact. IMPRESSION: No acute cardiopulmonary process.
[2023-11-14 21:51] LABS: Partial Thromboplastin Time 23.4 sec (22.0-30.0); Prothrombin Time 10.6 sec (10.0-12.5)
[2023-11-14] MEDS: DIPH,PERTUS(ACELL)TETVAC-LF 0.5 ML VIAL IM ONE (22:36)
[2023-11-14 23:18] VITALS: PULSE 77
[2023-11-14] MEDS: TOPICAL SKIN ADHESIVE 1 EACH AMP TOPICAL ONE (23:43)
[2023-11-15 00:19] VITALS: BP 128/82; RESP 16
== END 2023-11-14 23:45 | disposition home or self-care (01) ==
LOC: EC 20:46
DX: S02.2XXA Fracture of nasal bones, initial encounter for closed fracture (principal); S01.81XA Laceration without foreign body of other part of head, initial encounter; R55 Syncope and collapse; E86.0 Dehydration; N17.9 Acute kidney failure, unspecified; I45.10 Unspecified right bundle-branch block; F12.90 Cannabis use, unspecified, uncomplicated; K52.9 Noninfective gastroenteritis and colitis, unspecified; Z20.822 Contact with and (suspected) exposure to COVID-19; X58.XXXA Exposure to other specified factors, initial encounter
CPT/HCPCS: 12011 ×2; 99285 ×2; 96374 ×2; 96361 ×3; 96372 ×2; 36415; 93005; 80053; 83735; 84484; 85025; 85610; 85730; 87636; 71046; 72125; 70450; 90715; J2405